=== PATIENT | female | born 1945 | race Caucasian/White ===

== ENCOUNTER 2025-01-04 13:00 | Emergency (ER) | payer OTHER, SELFPAY ==
[2025-01-04 13:02] VITALS: BP 152/108; PULSE 120; RESP 18; TEMP 36.5; O2SAT 96; BMI 26.2
--- NOTE | 2025-01-04 13:32 | EX.ED.DYSGE1 ---
HPI History of Present Illness Chief Complaint: Palpitations Narrative Narrative: 79-year-old female, past medical history of depression and anxiety on antidepressant, presents with atrial fibrillation and fatigue. She relates history that she is felt tired and fatigued over the last month. She denies any chest pain or shortness of breath, no leg swelling, no fevers or chills, no cough, no other symptoms. She was post to have cataract surgery at the [facility] by Dr. Orozco today, but she states that her heart was doing different things. She was told that she was in atrial fibrillation and was sent to the emergency department. She denies any exacerbating or alleviating factors. Once again she states she is not having chest pain and she does not feel heart palpitations but she just been fatigued. PFSH PFSH Home Medications ?Medication ?Instructions ?Recorded ?Last Taken ?Type apixaban 5 mg tablet (Eliquis) 5 mg PO BID #60 tabs 01/04/25 Unknown Rx metoprolol tartrate 50 mg tablet 50 mg PO BID #60 tabs 01/04/25 Unknown Rx paroxetine HCl 20 mg tablet 20 mg PO DAILY 01/04/25 01/03/25 History Allergy/AdvReac Type Severity Reaction Status Date / Time Penicillins Allergy Swelling Verified 01/04/25 13:01 Social History Smoking Status: Never smoker ROS ROS ED ROS Narrative Review of systems positive for malaise and fatigue x 1 month. No chest pain, no shortness of breath, no leg swelling. No nausea or vomiting, no fevers or chills. No exacerbating or alleviating factors. EXAM Physical Exam Narrative Exam Narrative: Afebrile. Vital signs noted. Nontoxic-appearing. Cardiovascular examination reveals an irregularly irregular rhythm, with a normal rate. Lungs clear to auscultation bilaterally. Abdomen soft and nontender without guarding or rebound, positive bowel sounds. Neurological examination nonfocal, nonlateralizing, awake, alert, interactive. No appreciable pedal edema bilaterally. Const Vital Signs: 01/04/25 13:02 01/04/25 14:00 Temperature 97.7 F L Temperature Source Temporal Pulse Rate 120 H 104 H Respiratory Rate 18 14 Blood Pressure 152/108 H 124/78 H Blood Pressure Mean 122 93 Pulse Ox 96 98 Oxygen Delivery Method Room Air MDM MDM MDM Narrative Medical decision making narrative: Concern is for new onset atrial fibrillation. Although she was documented under 20 bpm, on examination she is in the 90s. EKG was obtained and interpreted by myself independently as atrial fibrillation that is rate controlled at [address] changes. No STEMI. I reviewed her laboratory work and she has normal white count of 5.6, hemoglobin 13.7, hematocrit 42.2, platelet count 251. Electrolyte panel shows normal sodium of 140 with potassium 4.1, glucose elevated 227 but anion gap normal at 12. Magnesium normal at 2.1. LFTs are grossly unremarkable. TSH low at 0.096. Chest x-ray interpreted by myself independently as no acute process, no pneumonia, no pneumothorax. I reviewed the radiology report which confirms my independent interpretation. At this point in time, she is rate controlled currently with heart rate at 104 bpm. I discussed patient with Dr. Fercho Pat with cardiology. In discussion with the patient, through shared decision making, they prefer outpatient follow-up as opposed to observation or admission. Patient was given her first dose of metoprolol tartrate 50 mg here as well as Eliquis 5 mg. She is to take the metoprolol and Eliquis twice daily. She was told of the risk of increased bleeding and spontaneous hemorrhage with the use of Eliquis, and risk-benefit ratio was discussed as well. At this point in time, I do feel she can be discharged to follow-up with cardiology. She is to return with consistently elevated heart rate above 120 bpm, new or worsening symptoms including chest pain or shortness of breath. Disposition is discharged home in stable condition. History & Record Review Discussion w/independent historian: Patient and Family Additional record(s) reviewed:: Prior ED visit Lab Data Attestation: I reviewed the patient's lab results. Labs: Laboratory Results - last 24 hr 01/04/25 13:12 WBC 5.6 RBC 4.68 Hgb 13.7 Hct 42.2 MCV 90.2 MCH 29.3 MCHC 32.5 RDW Std Deviation 41.3 RDW Coeff of Albert 12.7 Plt Count 251 MPV 9.8 Sodium 140 Potassium 4.1 Chloride 102 Carbon Dioxide 25.9 Anion Gap 12 BUN 16 Creatinine 0.79 Estim Creat Clear Calc 59.65 Est GFR (MDRD) Non-Af 76 BUN/Creatinine Ratio 20.6 H Glucose 227 H Calcium 10.0 Magnesium 2.1 Total Bilirubin 0.49 AST 22 ALT 20 Alkaline Phosphatase 99 Total Protein 7.2 Albumin 4.4 Globulin 2.8 Albumin/Globulin Ratio 1.6 TSH 0.096 L Radiography Chest X-Ray - ED: 1 View, Read by ED Physician, Read by Radiologist and No Acute Disease Diagnostic Testing: Clinical Impression(s) from Imaging Studies Chest X-Ray 01/04/25 13:55 IMPRESSION: No Acute Findings. Reading Location: [place] [address] Discharge Plan Triage Chief Complaint: Palpitations ED Provider: Kenji Castro Dx/Rx/DC Orders Clinical Impression: New onset atrial fibrillation, Fatigue Instructions: ED AFIB Prescriptions: New metoprolol tartrate 50 mg tablet 50 mg PO BID Qty: 60 0RF Eliquis 5 mg tablet 5 mg PO BID Qty: 60 0RF No Action paroxetine HCl 20 mg tablet 20 mg PO DAILY Primary Care Provider: Lyle Schmid Referrals: Fercho Pat MD [Med Staff - Active Staff] - 3-5 Days Lyle Schmid MD [Primary Care Provider] - Activity Restrictions/Additional Instructions: Follow-up with [facility] or the diesel stationary engineer of your choice. Call the office for an appointment. Take medication as directed. Return to the emergency department with elevated heart rate above 120 bpm consistently, new or worsening symptoms, including chest pain or shortness of breath. With the use of an anticoagulant, you are at risk for increased bleeding or even spontaneous hemorrhage. Print Language: Citizen Of [place] Disposition Disposition: Home, Self Care
--- NOTE | 2025-01-04 13:50 | EKG12_ITS ---
Test Reason : PALP Blood Pressure : */* mmHG Vent. Rate : 97 BPM Atrial Rate : * BPM P-R Int : * ms QRS Dur : 88 ms QT Int : 352 ms P-R-T Axes : * -8 43 degrees QTcB Int : 447 ms Atrial fibrillation Nonspecific ST abnormality Abnormal ECG Confirmed by AMIRA LEWIS, TUAN ([id number]), health editor ROWAN EAGLE ([id number]) on 01/05/2025 8:25:20 AM Referred By: CHARLIE Confirmed By: TUAN COLLIER MD
--- NOTE | 2025-01-04 13:55 | RAD_ITS ---
PROCEDURE: CHEST 1 VIEW (PORTABLE) 01/04/2025 REASON FOR EXAM: FATIGUE TECHNIQUE: Frontal view of the chest. COMPARISON: None FINDINGS: Hardware: EKG electrodes are seen. Heart: The heart size is normal. Lungs: The lungs are clear. Bones: Degenerative changes are identified within the thoracic spine. Other: RAD/Chest 1 View (Portable) IMPRESSION: No Acute Findings. Reading Location: [place] [id number]
[2025-01-04 14:00] VITALS: BP 124/78; PULSE 104; RESP 14; O2SAT 98
[2025-01-04 14:22] LABS: Hematocrit 42.2 % (37-47); Hemoglobin 13.7 g/dL (12.0-15.0); Mean Corp Hgb Conc 32.5 g/dL (32-36); Mean Corpuscular Hgb 29.3 pg (27.0-32.0); Mean Corpuscular Volume 90.2 fL (81-99); Mean Platelet Vol. 9.8 fl (6.2-12.0); Platelet Count 251 K/mm3 (150-450); RBC Distribution Width CV 12.7 % (11.6-14.6); RBC Distribution Width SD 41.3 fl (35.1-43.9); Red Blood Count 4.68 M/mm3 (4.2-5.4); White Blood Count 5.6 K/mm3 (4.4-11.0)
[2025-01-04 15:10] LABS: ALB/GLOB Ratio 1.6 RATIO (0.9-2.4); AST(SGOT) 22 U/L (<=31); Alanine Aminotransfer ALT/SGPT 20 U/L (<=34); Albumin, Serum 4.4 g/dL (3.4-4.8); Alkaline Phosphatase 99 U/L (35-104); BUN 16 mg/dL (4-19); BUN/Creat Ratio 20.6 RATIO (10-20); Creatinine, Serum 0.79 mg/dL (0.70-1.20); EST Glomerular Filtration Rate 76 (>60); Estimated Creatinine Clearance 59.65 ml/min (50-250); Globulin 2.8 g/dL (2.2-4.2); Glucose 227 mg/dL (70-99); Magnesium 2.1 mg/dL (1.5-2.2); Protein, Total 7.2 g/dL (5.9-8.4); Total Bilirubin 0.49 mg/dL (0.00-1.30)
[2025-01-04 15:11] LABS: Anion Gap 12 (5-15); Carbon Dioxide 25.9 mmol/L (21.0-32.0); Chloride 102 mmol/L (98-108); Potassium 4.1 mmol/L (3.3-5.1); Sodium Level 140 mmol/L (133-145); Thyroid Stim Hormone (TSH) 0.096 uIU/mL (0.300-4.200)
[2025-01-04 15:27] VITALS: BP 127/82; PULSE 102; RESP 17; O2SAT 98
[2025-01-04 15:28] VITALS: BP 127/82; PULSE 85; RESP 17; TEMP 36.7; O2SAT 98
[2025-01-04] MEDS: Metoprolol Tartrate 50 MG Tablet PO (15:33)
[2025-01-04] MEDS: APIXABAN 5 MG TABLET PO (15:33)
== END 2025-01-04 15:42 | disposition home or self-care (01) ==
PROVIDERS: Emergency Provider Emergency Medicine; PCP Family Medicine; Visit Provider Emergency Medicine
DX: R00.2 Palpitations (principal); I48.91 Unspecified atrial fibrillation; R53.83 Other fatigue; F41.9 Anxiety disorder, unspecified; Z79.899 Other long term (current) drug therapy; Z79.01 Long term (current) use of anticoagulants
CPT/HCPCS: 71045; 80053; 83735; 84443; 85027; 93005; 99284

== ENCOUNTER → 2025-02-18 | Outpatient (CLI) | payer SELFPAY, OTHER ==
--- NOTE | 2025-02-18 07:02 | ECHOD_ITS ---
Reason For Study Reason For Study: AFIB Procedure This was a 2D Doppler, Color Flow transthoracic echocardiogram. Exam performed in department. Left Ventricle Normal LV size. The left ventricular ejection fraction is 45 %. There is mild global hypokinesis of the left ventricle. Right Ventricle Normal RV size. Normal systolic function. Atria Normal left atrium. Normal right atrium. Mitral Valve Normal mitral valve. Mild (1+) eccentric mitral valve insufficiency. Tricuspid Valve Normal tricuspid valve. Mild (1+) tricuspid valve insufficiency. Pulmonary artery systolic pressure is 26 mmHg. Aortic Valve Trisinus/trileaflet aortic valve. Pulmonic Valve Normal pulmonic valve. Great Vessels Normal aortic root. The pulmonary artery is normal size. Inferior vena cava collapse with respiration. Pericardium/Pleural No pericardial effusion. MMode/2D Measurements & Calculations LVIDd: 4.7 cm IVSd: 1.1 cm LVOT diam: 2.0 cm LVIDs: 3.7 cm LVPWd: 1.2 cm LVOT area: 3.1 cm2 RVDd: 3.6 cm FS: 21.9 % LAV(MOD-bp): 83.9 ml LVAd ap4: 22.6 cm2 SV(MOD-sp4): 24.2 ml LAV(MOD-bp) Indexed: 44.8 ml/m2 LVLd ap4: 7.3 cm SI(MOD-sp4): 12.9 ml/m2 LAV(MOD-sp2): 123.3 ml EDV(MOD-sp4): 58.8 ml LAV(MOD-sp4): 58.3 ml EDV(sp4-el): 59.7 ml LVAs ap4: 14.8 cm2 LVLs ap4: 5.5 cm ESV(MOD-sp4): 34.6 ml ESV(sp4-el): 34.0 ml EF(MOD-sp4): 41.2 % EF(sp4-el): 43.0 % SV(sp4-el): 25.7 ml LA A4 area: 21.0 cm2 LA dimension(2D): 3.7 cm RA A4 area: 18.0 cm2 Doppler Measurements & Calculations MV E max dana: 82.2 cm/sec Ao V2 max: 131.8 cm/sec AI max dana: 433.1 cm/sec Ao max P.0 mmHg AI max P.0 mmHg Ao V2 mean: 89.1 cm/sec Ao mean P.7 mmHg AI dec slope: 141.2 cm/sec2 Ao V2 VTI: 28.8 cm AI P1/2t: 898.4 msec AV (velocity ratio): 0.67 MALCOLM(I,D): 2.1 cm2 MALCOLM(V,D): 2.1 cm2 LV V1 max: 91.1 cm/sec SV(LVOT): 59.9 ml PA V2 max: 74.2 cm/sec LV V1 max P.3 mmHg PA V2 mean: 62.9 cm/sec LV V1 mean P.6 mmHg LV V1 mean: 58.8 cm/sec LV V1 VTI: 19.3 cm TR max dana: 239.8 cm/sec TR max P.0 mmHg ECHO/Echo Complete Interpretation Summary Normal LV size. The left ventricular ejection fraction is 45 %. There is mild global hypokinesis of the left ventricle. Mild (1+) tricuspid valve insufficiency. Ordering Physician: Philip Dietz Referring Physician: Philip Dietz Performed By: Antonieta Emery RCS
--- OUTSIDE RECORDS SUMMARY | 2025-02-18 07:14 | XMS RPT_ITS | CCD ---
Author Organization [facility] Care Team Providers Care Saddle Mechanic Name Role Phone Sonam Hernandez MD Primary Care Provider Sonam Hernandez MD Primary Care Provider Katie DIAMOND ASSORTER.RN CHEMICAL DEPENDENCYLa Unavailable Munir DIAMOND ASSORTER.RN CHEMICAL DEPENDENCYDaniel Unavailable Kenji Castro MD Emergency Provider Dr. Sonam Hernandez MD Primary Care Provider [phone] Kenji Castro MD Attending Provider Dr. Sonam Hernandez MD Referring Provider Dr. Philip Dietz MD Attending Provider Sonam Hernandez Referring Unavailable Sonam Hernandez Primary Care Unavailable Philip Dietz Attending Unavailable Snoam Hernandez Primary Care Unavailable Kenji Castro Attending Unavailable SONAM HERNANDEZ Attending Unavailable SONAM HERNANDEZ Primary Care Unavailable SHINE TELLEZ Attending Unavailable SONAM HERNANDEZ Primary Care Unavailable SHINE TELLEZ Referring Unavailable SONAM HERNANDEZ Primary Care Unavailable SONAM HERNANDEZ Primary Care Unavailable AUBREY JAIMES Attending Unavailable Allergies Allergy Classification Reported Allergen(s) Allergy Type Date of Onset Reaction(s) Facility (3 sources) Penicillins; Translations: [PENICILLINS] Propensity to adverse reactions [address] [facility] Work Phone: (6 sources) Penicillins Propensity to adverse reactions [address] [facility] Work Phone: (5 sources) Penicillins Propensity to adverse reactions [address] [facility] Work Phone: (2 sources) Penicillins Allergy to substance 5 Swelling [facility] (1 source) Penicillins Drug allergy (disorder) 5 [facility] Repository Medications Current Medications Medication Drug Class(es) Dates Sig (Normalized) Sig (Original) apixaban 5 mg oral tablet (4 sources) Factor Xa Inhibitor Start: 01-04-2025 End: 01-26-2025 take 1 tablet by mouth twice daily Apixaban (Eliquis) 5 mg tablet Active 5 mg PO TWICE A DAY 60 11 January 26, 2025 10:06am ascorbic acid 1000 mg oral capsule (1 source) Vitamin C Start: 01-26-2025 take 1 capsule by mouth once daily Ascorbic Acid (Vitamin C) 1,000 mg capsule Active 1000 mg PO daily January 26, 2025 12:00am Calcium Carbonate / magnesium carbonate (13 sources) Start: 11-16-2010 Calcium and Magnesium Carbonates ORAL per tablet Take 1 tablet by mouth. 3 tablets 0 11/16/2010 Active Comment on above: Take 1 tablet by margo . 3 tablets CelluLife (1 source) Start: 01-26-2025 CelluLife Active PO DAILY January 26, 2025 12:00am cholecalciferol 0.025 mg oral capsule (14 sources) Vitamin D Start: 01-26-2025 take 1 capsule by mouth once daily Cholecalciferol (Vitamin D3) 25 mcg (1,000 unit) capsule Active 25 ug PO daily January 26, 2025 12:00am Start: 06-01-2015 take 1 capsule by mo [facility] once daily Cholecalciferol, Vitamin D3, 1,000 unit cap Take 1 capsule by mouth once daily. 30 capsule 11 06/01/2015 Active Comment on above: Take 1 capsule by mo ut once daily. Fish Oil-Conowingo-3 Fatty Acids 300-1,000 mg cpDR (11 sources) Start: 11-17-19 11 Fish Oil-Conowingo-3 Fatty Acids 300-1,000 mg cpDR Take by mouth. 6 daily 0 11/16/2010 Active Comment on above: Take by mouth. 6 joão ly Maxi Vision (1 source) Start: 01-27-20 25 Maxi Vision Active PO DAILY January 26, 2025 12:00am metoprolol tartrate 50 mg oral tablet (3 sources) beta-Adrenergic Beto Start: 01-05-20 End: 01-27-20 take 1 tablet by mouth twice daily Metoprolol Tartrate 50 mg tablet Active 50 mg PO TWICE A DAY 60 11 January 26, 2025 10:07am nitrofurantoin, macrocrystals 25 mg / nitrofurantoin, monohydrate 75 mg oral capsule (4 sources) Nitrofuran Antibacterial Start: 02-15-20 End: 02-20-20 take 1 capsule by mouth twice daily nitrofurantoin monohydrate and macrocrystal (MACROBID) 100 mg capsule Take 1 capsule by mouth two times a day for 5 days. 10 capsule 02/14/2025 02/19/2025 Active Start: 05-09-2023 End: 05-14-2023 take 1 capsule by mouth twice daily nitrofurantoin monohydrate and macrocrystal (MACROBID) 100 mg capsule Take 1 capsule by mouth two times a day for 5 days. 10 capsule 0 05/09/2023 05/14/2023 Active Comment on above: Take 1 capsule by [facility] two times a day for 5 days. omega-3 acid ethyl esters (skilled nursing) 1000 mg oral capsule (1 source) Start: 5 Conowingo-3 Acid Ethyl Esters 1 gram capsule Active 1 NMA PO daily January 26, 2025 12:00am PARoxetine hydrochloride 20 mg oral tablet (20 sources) Serotonin Reuptake Inhibitor Start: End: 6 take 1 tablet by mouth once daily PARoxetine (PAXIL) 20 mg tablet Indications: Anxiety and depression Take 1 tablet by mouth once daily. 90 tablet 3 07/23/2024 07/23/2025 Active Comment on above: Take [address] tablet [address] [facility] once daily. Sugar Recovery (1 source) Start: 5 Sugar Recovery Active PO DAILY January 26, 2025 12:00am Turmeric extract (1 source) Start: 5 take 1 capsule by mouth once daily Turmeric 400 mg capsule Active 400 mg PO DAILY January 26, 2025 12:00am vitamin e 180 mg oral capsule (14 sources) Start: 5 take 1 capsule by mouth once daily Vitamin E (Dl, Acetate) 180 mg (400 unit) capsule Active 180 mg PO daily January 26, 2025 12:00am Start: 11-16-2010 take 1 capsule by mo uth twice daily alpha tocopheryl acetate 400 unit ORAL capsule Take 1 capsule by mouth twice daily. 0 11/16/2010 Active Start: 11-16-2010 take 1 capsule by mo uth twice daily alpha tocopheryl acetate 400 unit ORAL capsule Take 1 capsule by mouth twice daily. 0 11/16/2010 Active Comment on above: Take 1 capsule by mo uth twice daily. Completed/Discontinued Medications Medication Drug Class(es) Dates Sig (Normalized) Sig (Original) Fish Oil-Conowingo-3 Fatty Acids (FISH OIL OMEGA 3-6-9) 300-1,000 mg ORAL CpDR (2 sources) Start: 11-16-2010 Fish Oil-Conowingo-3 Fatty Acids (FISH OIL OMEGA 3-6-9) 300-1,000 mg ORAL CpDR Take by mouth. 6 daily 0 11/16/2010 Active Comment on above: Take by mouth. 6 joão ly rosuvastatin calcium 5 mg oral tablet (8 sources) HMG-CoA Reductase Inhibitor Start: 04-02-2018 End: 07-23-2024 rosuvastatin (CRESTOR) 5 mg tablet Indications: Hyperlipidemia with target LDL less than 100 Take one tablet at bedtime three times/week. 12 tablet 5 04/02/2018 07/23/2024 Discontinued (Course of therapy completed) Comment on above: Take one tablet at b edtime three times/week. Problems Active Problems Problem Classification Problem Date Documented Da te Episodic/Chronic Anxiety disorders (19 sources) Mixed anxiety and depressive disorder; Translations: [Anxiety disorder, unspecified] Onset: 05-25-2015 05-25-2015 Chronic Cardiac dysrhythmias (5 sources) Atrial fibrillation; Translations: [Unspecified atrial fibrillation] Onset: 01-26-2025 01-04-2025 Chronic Cardiac dysrhythmias (1 source) Palpitations; Translations: [Palpitations] Onset: 01-11-2025 Episodic Diabetes mellitus without complication (17 sources) Type 2 diabetes mellitus without complication; Translations: [Type 2 diabetes mellitus without complications] Onset: 05-25-2015 05-25-2015 Chronic Disorders of lipid metabolism (16 sources) Hyperlipidemia; Translations: [Hyperlipidemia, unspecified] Onset: 08-17-2012 05-25-2015 Chronic Genitourinary symptoms and ill-defined conditions (3 sources) Scalding pain on urination ; Translations: [Dysuria] Onset: 02-14-2025 05-09-2023 Episodic Malaise and fatigue (2 sources) Fatigue; Translations: [Other fatigue] 01-04-2025 Episodic Mood disorders (1 source) Depressive disorder; Translations: [Depression] 01-18-2025 Chronic Other non-traumatic joint disorders (6 sources) Pain of right wrist; Translations: [Pain in right wrist] 12-28-2024 Episodic Other non-traumatic joint disorders (1 source) Pain in right wrist; Translations: [Right wrist pain] Onset: 12-28-2024 Episodic Past or Other Problems Problem Classification Problem Date Documented Da te Episodic/Chronic Diabetes mellitus with complications (7 sources) Type 2 diabetes mellitus; Translations: [Type II or unspecified type diabetes mellitus without mention of complication, uncontrolled] Onset: 06-16-2006 Resolved: 05-25-2015 05-25-2015 Chronic Nutritional deficiencies (8 sources) Vitamin D deficiency; Translations: [Vitamin D deficiency, unspecified] Onset: 11-16-2010 Resolved: 12-04-2016 12-04-2016 Chronic Thyroid disorders (8 sources) Hypothyroidism; Translations: [Hypothyroidism, unspecified] Onset: 09-01-2006 Resolved: 09-21-2020 09-21-2020 Chronic Results Test Name Value Interpretation Reference Range Facility Bacteria Ur Culton 5 Bacteria identified Cx Nom (U) ORGANISM ID: 1 10,000 -<50,000 CFU/ml Normal urogenital nissa Normal [facility] Comment on above: Performed By: #### 6 30-4 #### [facility] CLIA [id number] [address] [place] [address] [place] CNOVon 02-14-2025 CNOV Office Visit (WOUCA) ---- DORYS GOMES ([id number]) 1945 F Date Time Provider Department 02/14/25 1:45 PM FIONAAUBREY SHIV During your visit today, we recorded the following information about you: Temperature Pulse Respiration Blood pressure 96.2 degrees 95/minute 20/minute 110/80 Weight 76.1 kg Fiona Aub[facility]APRN. [facility] 02/14/2025 12:49 PM Signed [facility] Olvera Dorys Gomes is a 79 year old female. Patient presents with: Urinary Problem: Frequency x 4 days HPI Nontoxic-appearing female presents urgent care chief plaint possible UTI. Duration of symptoms 4 days. Associated symptoms dysuria frequency urgency. Presents today for evaluation. States history of UTIs this is similar. OTC medications none. No flank pain fever vomiting or abdominal pain. No vaginal discharge. Past medical history prescription medications allergies reviewed. Review of Systems Constitutional: Negative for chills, fatigue and fever. Gastrointestinal: Negative for abdominal distention, abdominal pain, nausea, rectal pain and vomiting. Genitourinary: Positive for dysuria, frequency and urgency. Negative for difficulty urinating, dyspareunia, flank pain, genital sores, hematuria, vaginal bleeding, vaginal discharge and vaginal pain. Objective BP 110/80 Pulse 95 Temp (!) 35.7 ?C (96.2 ?F) Resp 20 Wt 76.1 kg (167 lb 12.3 oz) SpO2 99% BMI 27.08 kg/m? Physical Exam Constitutional: Appearance: Normal appearance. HENT: Mouth/Throat: Mouth: Mucous membranes are moist. Cardiovascular: Rate and Rhythm: Normal rate. Pulmonary: Effort: Pulmonary effort is normal. Breath sounds: Normal breath sounds. Abdominal: Tenderness: There is no abdominal tenderness. There is no right CVA tenderness, left CVA tenderness, guarding or rebound. Neurological: Mental Status: She is alert. {ASSESSMENT/PLAN: 1. Urinary frequency - ICD9: 788.41, ICD10: R35.0 acute - UA DIP, URINE (POC) - BACTERIAL CULTURE, URINE Urine positive for glucose blood leukocytes. Treat for acute cystitis. Placed on Macrobid. Patient states she does had routine lab work not too long ago and kidney functions was within normal limits. I did encourage patient to check glucose at home due to glucose in urine. Red flags for prompt ER evaluation discussed. Patient was educated on supportive therapies. Patient will follow up with primary care provider as needed. Patient was instructed to immediately proceed to emergency room for any new, worsening, or symptoms lasting longer than anticipated. The patient's clinical presentation is otherwise unremarkable at this time. Based on exam and clinical finding, the patient is stable for discharge. Plan of care was discussed with patient. Patient verbalizes understanding and agrees to plan of care. This note was generated using Clerk software. It may contain errors in wording, punctuation, or spelling. Aubrey Jaimes APRN.[facility] History and Record Review Clinical information obtained from an independent historian. History obtained from or confirmed by: parent. External record(s) reviewed: prior outpatient record. Disposition The patient was discharged. OTC Medications were advised: Procedures Allergies As of Date: 02/14/2025 Noted Allergy Reaction PENICILLINS 07/29/2005 Date Reviewed: 02/14/2025 Reviewed by: Aubrey Jaimes APRN.[facility] - Fully Assessed Reason for Visit: Urinary Problem [252] Cmt: Frequency x 4 days Primary Visit Diagnosis:Urinary frequency [R35.0] Order(s):UA DIP, URINE (POC) [[id number]] Order #: [id number]. #:[id number] BACTERIAL CULTURE, URINE [SQURCUL] Order #: [id number]. #:[id number] nitrofurantoin monohydrate and macrocrystal (MACROBID) 100 mg capsuleTake 1 capsule by mouth two times a day for 5 days.Disp: 10 capsuleRfl: 0 Prescriptions as of 02/14/2025 - nitrofurantoin monohydrate and macrocrystal (MACROBID) 100 mg capsule Take 1 capsule by mouth two times a day for 5 days. - PARoxetine (PAXIL) 20 mg tablet Take 1 tablet by mouth once daily. - Cholecalciferol, Vitamin D3, 1,000 unit cap Take 1 capsule by mouth once daily. - Fish Oil-Conowingo-3 Fatty Acids 300-1,000 mg cpDR Take by mouth. 6 daily - Calcium and Magnesium Carbonates ORAL per tablet Take 1 tablet by mouth. 3 tablets - alpha tocopheryl acetate 400 unit ORAL capsule Take 1 capsule by mouth twice daily. Problem List As Of Date 02/14/2025 Noted Resolved DIABETES MELLITUS TYPE II UNCONTR UNCOMPL [IMO0*06/16/2006 05/25/2015 Hypothyroidism [E03.9] 09/01/2006 09/21/2020 Vitamin D deficiency [E55.9] 11/16/2010 12/04/2016 Hyperlipidemia with target LDL less than 100 [E*08/17/2012 Diabetes mellitus type 2, controlled, without c*05/25/2015 Anxiety and depression [F41.9, F32.A] 05/25/2015 Prescriptions ordered this encounte (more content not included)... Normal [facility] UA DIP, URINE (POC)on 2024 BILIRUBIN UA (POCT) Negative Negative [place] [facility] CLARITY UA (POCT) Cloudy [facility] COLOR UA (POCT) Dark yellow [facility] GLUCOSE UA (POCT) 250 mg/dL Abnormal Negative [facility] Hemoglobin Ql (U) Moderate Abnormal Negative [facility] Interpretation and review of laboratory results Abnormal [facility] KETONE UA (POCT) Trace Negative mg/dL [facility] LEUKOCYTES UA (POCT) Small Abnormal Negative [facility] NITRITE UA (POCT) Negative Negative [facility] PH UA (POCT) 6 4.5 - 8.[address] [facility] Protein Ql (U) 30 mg/dL Abnormal Negative [facility] SPECIFIC GRAVITY UA (POCT) 1.02 1.005 - 1.[address] [facility] UROBILINOGEN UA (POCT) 0.2 Fariba l E.U./dL [facility] Location:[address], [place], [place], [id number] [place] [address] POINT OF CARE [facility] Cardiology Visit Reporton Cardiology Visit Report [facility] [address] [place] [address] OFFICE VISIT Date of Service: 01/26/25 MR#: [id number] Acct: [id number] Name: DORYS GOMES Rep #: [id number] : 1945 Provider: Dr. Philip martin MD Age/Sex: 79/F Location: [facility] [place] Status: Signed HPI HPI History of Present Illness Details: Patient is a very pleasant 79-year-old [facility] white female who comes in today for new patient visit for atrial fibrillation. Patient presented to have cataract surgery on January 04 and was found to be in atrial fibrillation. She was sent to the emergency department at [facility] where she was evaluated. The patient's lab work was unremarkable other than her TSH being depressed at 0.096 normal levels being 0.3-4.2. She is on no replacement therapy. The patient carries a history of diabetes she does not know her hemoglobin A1c. She also has a history of hyperlipidemia and she is not on statin therapy. The patient's ECG in the emergency department on January 04 showed atrial fibrillation with a ventricular response of 97 bpm and some nonspecific ST changes. Patient comes in today with a repeat ECG showing atrial fibrillation with a controlled ventricular rate of [address] changes and poor R wave progression. This is probably related to lead placement. There was no poor R wave progression on her previous ECG. The patient has been treated with Eliquis 5 mg twice daily and metoprolol 50 mg twice daily since she was in the emergency department. The patient denies any chest discomfort she denies any syncope or near syncope she denies any change in her exercise tolerance she can walk 2 flights of stairs without significant shortness of breath and no significant restrictions. She has not noticed any change in her exercise tolerance she had no idea that she was in atrial fibrillation at the time of her cataract surgery. We really do not know when this started there was some notation in the ER documentation that it may have started in November. But the patient reports that she is intermittently felt palpitations for several years. There is a family history of heart disease in her dad. She is diabetic and she is not hypertensive she does have a history of hyperlipidemia by her medical record and type 2 diabetes by her medical record. She has never smoked. The patient's had no further testing since she was seen in the ED. Intake Vital Signs 01/04/25 13:02 01/26/25 09:18 Height 5 ft 7 in 5 ft 7 in Weight: 167 lb BMI 26.2 BP 126/84 H Blood Pressure Location Lt brachial Position Sitting Respiration 18 Pulse 78 Pulse Source Monitor Pulse Oximetry (%) 97 Oxygen Delivery Method room air Intake Visit Reasons: S/P [facility] 01/05 ([facility] ER) Inspector Plating Required: No Accompanied by: Is patient in pain?: No Allergies Penicillins Allergy (Verified 01/26/25 09:18) Swelling Medications ???Medication ???Instructions ???Recorded ???Confirmed ???Type paroxetine HCl 20 mg tablet 20 mg PO DAILY 01/04/25 01/26/25 H istory CelluLife PO DAILY 01/26/25 01/26/25 History Maxi Vision PO DAILY 01/26/25 01/26/25 History Sugar Recovery PO DAILY 01/26/25 01/26/25 History apixaban 5 mg tablet (Eliquis) 5 mg PO BID #60 tabs 01/26/2504/14 Rx ascorbic acid (vitamin C) 1,000 mg 1,000 mg PO QDAY 01/26/25 History capsule cholecalciferol (vitamin D3) 25 25 mcg PO QDAY 01/26/25 01/26/25 H istory mcg (1,000 unit) capsule metoprolol tartrate 50 mg tablet 50 mg PO BID #60 tabs 01/26/2504/14 Rx omega-3 acid ethyl esters 1 gram 1 cap PO QDAY 01/26/25 01/26/25 Hi story capsule turmeric 400 mg capsule 400 mg PO DAILY 01/26/25 01/26/25 History vitamin E (dl, acetate) 180 mg 180 mg PO QDAY 01/26/25 01/26/25 H istory (400 unit) capsule Have you fallen in the past year?: No [facility] Medical History Atrial fibrillation Hypothyroidism Vitamin D deficiency Hyperlipidemia Type 2 diabetes mellitus JESUS (generalized anxiety disorder) Depression Surgical History History of ankle surgery Family History Mother Cancer Father Diabetes Heart disease Social History Smoking Status: Never smoker alcohol intake: never substance use type: does not use caffeine: Yes ROS Const Const: Negative for fatigue or weakness ENT ENT: Negative for dizziness or balance problems Cardio Chest Pain: No Palpitations: Yes Edema: None Muscle aches with walking: None Resp Respiratory: Negative for SOB with activity, SOB at rest (more content not included)... Normal [facility] 12 Lead EKGon 01-04-2025 12 Lead EKG [facility] [address] [place] [address] 12 Lead EKG 01/04/25 1313 MR#: [id number] Acct: [id number] Name: DORYS GOMES Rep #: [id number] : 1945 79 From: Fercho Pat MD Attending Dr: Status: DEP ER Ordering Dr: Kenji Casrto MD Date: 01/04/25 Location: ED Sex: F C Admitted: Test Reason : PALP Blood Pressure : */* mmHG Vent. Rate : 97 BPM Atrial Rate : * BPM P-R Int : * ms QRS Dur : 88 ms QT Int : 352 ms P-R-T Axes : * -8 43 degrees QTcB Int : 447 ms Atrial fibrillation Nonspecific ST abnormality Abnormal ECG Confirmed by AMIRA LEWIS, FERCHO ([id number]), commissioning editor ROWAN EAGLE ([id number]) on 01/05/2025 8:25:20 AM Referred By: CHARLIE Confirmed By: FERCHO PAT MD 01/05/25 0825 Date Fercho Pat MD CC: Dr. Kenji Castro MD; Dr. Sonam Hernandez MD Signed Normal [facility] Anion gap in Serum or Plasma Ordered By: Kenji Castro on 01-04-2025 Anion gap [Moles/Vol] 12 mmol/L 12-02 [facility] BUN/creatinine ratioOrdered By: Kenji Castro on 01-04-2025 Urea nitrogen/Creatinine [Mass ratio] 20.6 mg/mg High 05-09 [facility] Bilirubin, totalOrdered By: Kenji Castro on 01-04-2025 Bilirubin [Mass/Vol] 0.49 mg/dL 0.00-1.30 [facility] CBC-Complete Blood Cnt No Di ffon 01-04-2025 Erythrocyte distribution width (RBC) [Ratio] 12.7 % Normal 11.6-14.6 [facility] Comment on above: Performed By: #### L [id number], L500.4050, L100.0500, L501.5200 #### [facility] [address] [place], [address] Hematocrit (Bld) [Volume fraction] 42.2 % Normal 37-47 [facility] Comment on above: Performed By: #### L [id number], L500.4050, L100.0500, L501.5200 #### [facility] [address] [place], [address] Hemoglobin (Bld) [Mass/Vol] 13.7 g/dL Normal 12.0-15.0 [facility] Comment on above: Performed By: #### L [id number], L500.4050, L100.0500, L501.5200 #### [facility] [address] [place], [address] MCH (RBC) [Entitic mass] 29.3 pg Normal 27.0-32.0 [facility] Comment on above: Performed By: #### L [id number], L500.4050, L100.0500, L501.5200 #### [facility] [address] [place], [address] MCHC (RBC) [Mass/Vol] 32.5 g/dL Normal 32-36 [facility] Comment on above: Performed By: #### L [id number], [id number], L100.0500, L501.5200 #### [facility] [address] [place], [address] MCV (RBC) [Entitic vol] 90.2 fL Normal 81-99 [facility] Comment on above: Performed By: #### L [id number], L500.4050, L100.0500, L501.5200 #### [facility] [address] [place], [address] Platelet mean volume (Bld) [Entitic vol] 9.8 fL Normal 6.2-12.0 [facility] Comment on above: Performed By: #### L [id number], [id number], L100.0500, L501.5200 #### [facility] [address] [place], [address] Platelets (Bld) [#/Vol] 251 10*3/uL Normal 150-450 [facility] Comment on above: Performed By: #### L [id number], L500.4050, L100.0500, L501.5200 #### [facility] [address] [place], [address] RBC (Bld) [#/Vol] 4.68 10*6/uL Normal 4.2-5.4 [facility] Comment on above: Performed By: #### L [id number], L500.4050, L100.0500, L501.5200 #### [facility] [address] [place], [address] RDW SD 41.3 fl Normal 35.1-43.9 [facility] Comment on above: Performed By: #### L [id number], L500.4050, L100.0500, L501.5200 #### [facility] [address] [place], [address] WBC (Bld) [#/Vol] 5.6 10*3/uL Normal 4.4-11.0 [facility] Comment on above: Performed By: #### L [id number], L500.4050, L100.0500, L501.5200 #### [facility] [address] [place], [address] CNPNon 01-04-2025 CNPN Telephone (FAMPWS) ---- DORYS GOMES ([id number]) 1945 F Date Time Provider Department 01/04/25 [facility]DE[facility] [facility] During your visit today, we recorded the following information about you: Kira Gilliam RN 01/04/2025 1:01 PM Signed Tia calling from [facility] and states pt was scheduled to have cataract procedure today and was noted to have new A-Fib with RVR. Tia states pt agreeable to be evaluated at [facility] today. KATHIE Michel Mark D, MD 01/04/2025 2:27 PM Signed Noted Sonam Hernandez MD Allergies As of Date: 01/04/2025 Noted Allergy Reaction PENICILLINS 07/29/2005 Date Reviewed: 12/28/2024 Reviewed by: Samina Ruvalcaba LPN - Fully Assessed Reason for Visit: Patient Update [1234] Prescriptions as of 01/04/2025 - PARoxetine (PAXIL) 20 mg tablet Take 1 tablet by mouth once daily. - Cholecalciferol, Vitamin D3, 1,000 unit cap Take 1 capsule by mouth once daily. - Fish Oil-Conowingo-3 Fatty Acids 300-1,000 mg cpDR Take by mouth. 6 daily - Calcium and Magnesium Carbonates ORAL per tablet Take 1 tablet by mouth. 3 tablets - alpha tocopheryl acetate 400 unit ORAL capsule Take 1 capsule by mouth twice daily. Problem List As Of Date 01/04/2025 Noted Resolved DIABETES MELLITUS TYPE II UNCONTR UNCOMPL [IMO0*06/16/2006 05/25/2015 Hypothyroidism [E03.9] 09/01/2006 09/21/2020 Vitamin D deficiency [E55.9] 11/16/2010 12/04/2016 Hyperlipidemia with target LDL less than 100 [E*08/17/2012 Diabetes mellitus type 2, controlled, without c*05/25/2015 Anxiety and depression [F41.9, F32.A] 05/25/2015 Encounter Status:Closed by SONAM HERNANDEZ on 01/04/25 Normal [facility] Carbon dioxide, total [Moles /volume] in Central venous bloodOrdered By: Kenji Castro on 01-04-2025 CO2 [Moles/Vol] 25.9 mmol/L 21.0-32.0 [facility] Chest 1 View (Portable)on Chest 1 View (Portable) [facility] Imaging Services [address] [place] [address] Chest 1 View (Portable) MR#: [id number] Acct: [id number] Name: DORYS GOMES Rep #: [id number] : 1945 F 79 From: Javier conklin MD PCP: Dr. Sonam Hernandez MD Status: REG ER Study: Chest 1 View (Portable) Date of Exam: 01/04/25 Exam# [id number] Ordering Dr: Kenji Castro MD PROCEDURE: CHEST 1 VIEW (PORTABLE) 01/04/2025 REASON FOR EXAM: FATIGUE TECHNIQUE: Frontal view of the chest. COMPARISON: None FINDINGS: Hardware: EKG electrodes are seen. Heart: The heart size is normal. Lungs: The lungs are clear. Bones: Degenerative changes are identified within the thoracic spine. Other: RAD/Chest 1 View (Portable) IMPRESSION: No Acute Findings. Reading Location: [facility]--1 CC: Dr. Kenji Castro MD; Dr. Sonam Hernandez MD Senior Php Web Developer: Signed Normal [facility] Chloride assayOrdered By: David Castro on 01-04-2025 Chloride [Moles/Vol] 102 mmol/L 98-108 [facility] Comprehensive Metabolic Prof ilon 01-04-2025 Chloride [Moles/Vol] 102 mmol/L Normal 98-108 [facility] Comment on above: Performed By: #### L 501.0831, L500.4050, L100.0500, L501.5200 #### [facility] Laboratory [address] [place], [address] CO2 [Moles/Vol] 25.9 mmol/L Normal 21.0-32.0 [facility] Comment on above: Performed By: #### L [id number], L500.4050, L100.0500, L501.5200 #### [facility] [address] [place], [address] GAP 12 Normal 5-15 [facility] Comment on above: Performed By: #### L [id number], L500.4050, L100.0500, L501.5200 #### [facility] Laboratory [address] [place], [address] Potassium [Moles/Vol] 4.1 mmol/L Normal 3.3-5.1 [facility] Comment on above: Performed By: #### L [id number], L500.4050, L100.0500, L501.5200 #### [facility] [address] [place], [address] Sodium [Moles/Vol] 140 mmol/L Normal 133-145 [facility] Comment on above: Performed By: #### L [id number], [id number], L100.0500, L501.5200 #### [facility] [address] [place], [address] Albumin [Mass/Vol] 4.4 g/dL Normal 3.4-4.8 [facility] Comment on above: Performed By: #### L [id number], L500.4050, L100.0500, L501.5200 #### [facility] [address] [place], [address] Albumin/Globulin [Mass ratio] 1.6 {ratio} Normal 0.9-2.4 [facility] Comment on above: Performed By: #### L [id number], L500.4050, L100.0500, L501.5200 #### [facility] [address] [place], [address] ALK PHOS 99 U/L Normal 35-104 [facility] Comment on above: Performed By: #### L [id number], L500.4050, L100.0500, L501.5200 #### [facility] [address] [place], [address] ALT [Catalytic activity/Vol] 20 U/L Normal <=34 [facility] Comment on above: Performed By: #### L [id number], L500.4050, L100.0500, L501.5200 #### [facility] [address] [place], [address] AST [Catalytic activity/Vol] 22 U/L Normal <=31 [facility] Comment on above: Performed By: #### L [id number], L500.4050, L100.0500, L501.5200 #### [facility] [address] [place], [address] Bilirubin [Mass/Vol] 0.49 mg/dL Normal 0.00-1.30 [facility] Comment on above: Performed By: #### L [id number], L500.4050, L100.0500, L501.5200 #### [facility] [address] [place], [address] BUN/CRE 20.6 RATIO High 10-20 [facility] Comment on above: Performed By: #### L [id number], L500.4050, L100.0500, L501.5200 #### [facility] [address] [place], [address] Calcium [Mass/Vol] 10.0 mg/dL Normal 7.6-11.0 [facility] Comment on above: Performed By: #### L [id number], L500.4050, L100.0500, L501.5200 #### [facility] [address] [place], [address] Creatinine [Mass/Vol] 0.79 mg/dL Normal 0.70-1.20 [facility] Comment on above: Performed By: #### L [id number], [id number], L100.0500, L501.5200 #### [facility] [address] [place], [address] ECRCL 59.65 ml/min Normal 50-250 [facility] Comment on above: Performed By: #### L [id number], L500.4050, L100.0500, L501.5200 #### [facility] [address] [place], [address] GFR/1.73 sq M.predicted among non-blacks MDRD (S/P/Bld) [Vol rate/Area] 76 mL/min/{1.73_m2} Normal >60 [facility] Comment on above: Result Comment: mL/m in/1.73m2 CKD-EPI Creatinine Equation (2020) Performed By: #### L 501.9520, L500.4050, L100.0500, L501.5200 #### [facility] [address] [place], [address] Globulin (S) [Mass/Vol] 2.8 g/dL Normal 2.2-4.2 [facility] Comment on above: Performed By: #### L 501.9520, L500.4050, L100.0500, L501.5200 #### [facility] [address] [place], [address] Glucose [Mass/Vol] 227 mg/dL High 70-99 [facility] Comment on above: Performed By: #### L 501.9520, L500.4050, L100.0500, L501.5200 #### [facility] [address] [place], [address] T PROT 7.2 g/dL Normal 5.9-8.4 [facility] Comment on above: Performed By: #### L [id number], L500.4050, L100.0500, L501.5200 #### [facility] [address] [place], [address] Urea nitrogen [Mass/Vol] 16 mg/dL Normal 4-19 [facility] Comment on above: Performed By: #### L [id number], L500.4050, L100.0500, L501.5200 #### [facility] [address] [place], [address] Emergency Department Summary on 01-04-2025 Emergency Department Summary [facility] Medical Records Department [address] [facility] [place] [address] Emergency Department Summary 01/04/25 MR#: [id number] Acct: [id number] Name: DORYS GOMES Rep #: [id number] : 1945 79 From: Kenji Castro MD PCP: Dr. Sonam Hernandez MD Status:REG ER Location: ED HPI History of Present Illness Chief Complaint: Palpitations Narrative Narrative: 79-year-old female, past medical history of depression and anxiety on antidepressant, presents with atrial fibrillation and fatigue. She relates history that she is felt tired and fatigued over the last month. She denies any chest pain or shortness of breath, no leg swelling, no fevers or chills, no cough, no other symptoms. She was post to have cataract surgery at the [facility] by Dr. Orozco today, but she states that her heart was doing different things. She was told that she was in atrial fibrillation and was sent to the emergency department. She denies any exacerbating or alleviating factors. Once again she states she is not having chest pain and she does not feel heart palpitations but she just been fatigued. PFS PFSH Home Medications ???Medication ???Instructions ???Recorded ???Last Taken ???Type apixaban 5 mg tablet (Eliquis) 5 mg PO BID #60 tabs 01/04/25 Unkn own Rx metoprolol tartrate 50 mg tablet 50 mg PO BID #60 tabs 01/04/25 Unk nown Rx paroxetine HCl 20 mg tablet 20 mg PO DAILY 01/04/25 01/03/25 H istory Allergy/AdvReac Type Severity Reaction Status Date / Time Penicillins Allergy Swelling Verified 01/04/25 13:01 Social History Smoking Status: Never smoker ROS ROS ED ROS Narrative Review of systems positive for malaise and fatigue x 1 month. No chest pain, no shortness of breath, no leg swelling. No nausea or vomiting, no fevers or chills. No exacerbating or alleviating factors. EXAM Physical Exam Narrative Exam Narrative: Afebrile. Vital signs noted. Nontoxic-appearing. Cardiovascular examination reveals an irregularly irregular rhythm, with a normal rate. Lungs clear to auscultation bilaterally. Abdomen soft and nontender without guarding or rebound, positive bowel sounds. Neurological examination nonfocal, nonlateralizing, awake, alert, interactive. No appreciable pedal edema bilaterally. Const Vital Signs: 01/04/25 13:02 01/04/25 14:00 Temperature 97.7 F L Temperature Source Temporal Pulse Rate 120 H 104 H Respiratory Rate 18 14 Blood Pressure 152/108 H 124/78 H Blood Pressure Mean 122 93 Pulse Ox 96 98 Oxygen Delivery Method Room Air MDM MDM MDM Narrative Medical decision making narrative: Concern is for new onset atrial fibrillation. Although she was documented under 20 bpm, on examination she is in the 90s. EKG was obtained and interpreted by myself independently as atrial fibrillation that is rate controlled at [address] changes. No STEMI. I reviewed her laboratory work and she has normal white count of 5.6, hemoglobin 13.7, hematocrit 42.2, platelet count 251. Electrolyte panel shows normal sodium of 140 with potassium 4.1, glucose elevated 227 but anion gap normal at 12. Magnesium normal at 2.1. LFTs are grossly unremarkable. TSH low at 0.096. Chest x-ray interpreted by myself independently as no acute process, no pneumonia, no pneumothorax. I reviewed the radiology report which confirms my independent interpretation. At this point in time, she is rate controlled currently with heart rate at 104 bpm. I discussed patient with Dr. Fercho Pat with cardiology. In discussion with the patient, through shared decision making, they prefer outpatient follow-up as opposed to observation or admission. Patient was given her first dose of metoprolol tartrate 50 mg here as well as Eliquis 5 mg. She is to take the metoprolol and Eliquis twice daily. She was told of the risk of increased bleeding and spontaneous hemorrhage with the use of Eliquis, and risk-benefit ratio was discussed as well. At this point in time, I do feel she can be discharged to follow-up with cardiology. She is to return with consistently elevated heart rate above 120 bpm, new or worsening symptoms including chest pain or shortness of breath. Disposition is discharged home in stable condition. History Record Review Discussion w/independent historian: Patient and Family Additional record(s) reviewed:: Prior ED visit Lab Data Attestation: I reviewed the patient's lab results. Labs: Laboratory Results - last 24 hr 01/04/25 13:12 WBC 5.6 RBC 4.68 Hgb 13.7 Hct 42.2 MCV 90.2 MCH 29.3 MCHC 32.5 RDW Std Deviation 41.3 RDW Coeff of Albert 12.7 Plt Count 251 MPV 9.8 Sodium 140 Potassium 4.1 Chloride 102 Carbon Dioxide 25.9 Anion Gap 12 (more content not included)... Normal [facility] Erythrocyte distribution wid th ratioOrdered By: Kenji Castro on 01-04-2025 Erythrocyte distribution width (RBC) [Ratio] 12.7 % 11.6-14.6 [facility] Erythrocyte distribution wid th standard deviationOrdered By: Kenji Castro on 01-04-2025 Erythrocyte distribution width (RBC) [Ratio] 41.3 fl 35.1-43.9 [facility] Glomerular filtration rate ( GFR) estimation/1.73 sq m using serum, plasma, or whole bOrdered By: Kenji Castro on 01-04-2025 GFR/1.73 sq M.predicted among non-blacks MDRD (S/P/Bld) [Vol rate/Area] 76 mL/min/{1.73_m2} >60 [facility] Comment on above: mL/min/1.73m2 CKD-EP I Creatinine Equation (2020) Hematocrit Auto (Bld) [Volum e fraction]Ordered By: Kenji Castro on 01-04-2025 Hematocrit (Bld) [Volume fraction] 42.2 % 37-47 [facility] Hemoglobin measurementOrdere d By: Kenji Castro on 01-04-2025 Hemoglobin (Bld) [Mass/Vol] 13.7 g/dL 12.0-15.0 [facility] Laboratory - Chemistry and C hemistry - challengeOrdered By: Kenji Castro on 01-04-2025 AST [Catalytic activity/Vol] 22 U/L <32 [facility] MCV (mean corpuscular volume ) determinationOrdered By: Kenji Castro on 01-04-2025 MCV (RBC) [Entitic vol] 90.2 fL 81-99 [facility] Magnesiumon 01-04-2025 Magnesium [Mass/Vol] 2.1 mg/dL Normal 1.5-2.2 [facility] Comment on above: Performed By: #### L [id number], L500.4050, L100.0500, L501.5200 #### [facility] [address] [place], [address] Magnesium measurement (mass/ volume)Ordered By: Kenji Castro on 01-04-2025 Magnesium (Unsp spec) [Mass/Vol] 2.1 mg/dL 1.5-2.2 [facility] Mean corpuscular hemoglobin (MCH) determinationOrdered By: Kenji Castro on 01-04-2025 MCH (RBC) [Entitic mass] 29.3 pg 27.0-32.0 [facility] Mean corpuscular hemoglobin concentration (MCHC) determinationOrdered By: Kenji Castro on 01-04-2025 MCHC (RBC) [Mass/Vol] 32.5 g/dL 32-36 [facility] Mean platelet volume determi nationOrdered By: Kenji Castro on 01-04-2025 Platelet mean volume (Bld) [Entitic vol] 9.8 fL 6.2-12.0 [facility] Platelet countOrdered By: David Castro on 01-04-2025 Platelets (Bld) [#/Vol] 251 10*3/uL 150-450 [facility] Potassium measurement (mass/ volume)Ordered By: Kenji Castro on 01-04-2025 Potassium (Unsp spec) [Mass/Vol] 4.1 mmol/L 3.3-5.1 [facility] RBC Auto (Bld) [#/Vol]Ordere d By: Kenji Castro on 01-04-2025 RBC (Bld) [#/Vol] 4.68 10*6/uL 4.2-5.4 [facility] Serum creatinine measurement (mass/volume)Ordered By: Kenji Castro on 01-04-2025 Creatinine [Mass/Vol] 0.79 mg/dL 0.70-1.20 [facility] Serum globulin measurementOr dered By: Kenji Castro on 01-04-2025 Globulin (S) [Mass/Vol] 2.8 g/dL 2.2-4.2 [facility] Serum glucose measurement (m ass/volume)Ordered By: Kenji Castro on 01-04-2025 Glucose [Mass/Vol] 227 mg/dL High 70-99 [facility] Serum or plasma alanine pappas otransferase (ALT) measurementOrdered By: Kenji Castro on 01-04-2025 ALT [Catalytic activity/Vol] 20 U/L <35 [facility] Serum or plasma albumin aleah urement (mass/volume)Ordered By: Kenji Castro on 01-04-2025 Albumin [Mass/Vol] 4.4 g/dL 3.4-4.8 [facility] Serum or plasma albumin/glob ulin mass ratioOrdered By: Kenji Castro on 01-04-2025 Albumin/Globulin [Mass ratio] 1.6 {ratio} 0.9-2.4 [facility] Serum or plasma alkaline sarah sphatase measurementOrdered By: Kenji Castro on 01-04-2025 ALP [Catalytic activity/Vol] 99 U/L 35-104 [facility] Serum or plasma calcium aleah urement (mass/volume)Ordered By: Kenji Castro on 01-04-2025 Calcium [Mass/Vol] 10.0 mg/dL 7.6-11.0 [facility] Serum or plasma urea nitroge n measurement (mass/volume)Ordered By: Kenji Castro on 01-04-2025 Urea nitrogen [Mass/Vol] 16 mg/dL 4-19 [facility] Sodium levelOrdered By: Kenji Castro on 01-04-2025 Sodium [Moles/Vol] 140 mmol/L 133-145 [facility] TSH DL <= 0.005 mIU/L QnOrde red By: Kenji Castro on 01-04-2025 TSH Qn 0.096 uIU/mL Low 0.300-4.200 [facility] Thyroid Stim Hormone (TSH)on 01-04-2025 TSH 0.096 uIU/mL Low 0.300-4.200 [facility] Comment on above: Performed By: #### L [id number], L500.4050, L100.0500, L501.5200 #### [facility] Laboratory [facility] [place], [address] Total proteinOrdered By: Marci martinez Charlie on 01-04-2025 Protein [Mass/Vol] 7.2 g/dL 5.9-8.4 [facility] White blood cell (WBC) count Ordered By: Kenji Castro on 01-04-2025 WBC (Bld) [#/Vol] 5.6 10*3/uL 4.4-11.0 [facility] CNOVon 12-28-2024 CNOV Office Visit (UCWSTR) ---- DORYS GOMES ([id number]) 1945 F Date Time Provider Department 12/28/24 12:30 PM [facility] During your visit today, we recorded the following information about you: Temperature Pulse Respiration Blood pressure 97.3 degrees 92/minute 20/minute 135/78 Weight 76 kg Shine Tellez PA 12/28/2024 1:33 PM Signed [facility] Subjective Dorys Gomes is a 79 year old female. Patient presents with: Fall: Fell on Friday and unsure how she landed, wrist pain, swelling and bruising since, LROM, increased pain in thumb area, x 4 days HPI Right Wrist Pain: - Fell onto right hand 2 days ago. - Pain localized to the radial side of the wrist. - Denies head trauma or loss of consciousness during the fall. - Reports tenderness to palpation on the radial side, less so on the ulnar side. - Denies pain with thumb movement. - Noted swelling in the wrist. - Denies numbness or paresthesia in the fingers. - Took Advil every 3-4 hours on the night of the fall for pain management. - Right-hand dominant. Review of Systems Musculoskeletal: (+) right wrist pain, (+) right hand swelling, (-) right thumb pain Neurological: (-) syncope, (-) paresthesia Objective BP 135/78 Pulse 92 Temp 36.3 ?C (97.3 ?F) Resp 20 Wt 76 kg (167 lb 8.8 oz) SpO2 98% BMI 27.04 kg/m? Physical Exam Vitals and nursing note reviewed. Constitutional: General: She is not in acute distress. Appearance: Normal appearance. She is not toxic-appearing. Musculoskeletal: Right wrist: Swelling, tenderness and bony tenderness present. No snuff box tenderness or crepitus. Decreased range of motion. Normal pulse. Right hand: Swelling present. No tenderness or bony tenderness. Normal range of motion. Normal pulse. Comments: Tenderness over radial side of right wrist. No snuffbox tenderness. Mild swelling about the wrist. Nontender ulnar side of the wrist decreased flexion extension of the wrist due to pain. Nontender hand. Diffuse swelling noted of right hand. Hand Tacker strength 5/5 normal ROM all digits right hand cap refill less than 2 seconds. Small amount of bruising and mild tenderness over the right thumb thenar eminence. Skin: General: Skin is warm and dry. Neurological: Mental Status: She is alert. {1. Right wrist pain (M25.531) - Patient experienced a fall onto the right hand two days ago, resulting in pain primarily on the radial side of the wrist. - Physical exam reveals tenderness on the radial side, mild tenderness on the ulnar side, and soft tissue swelling. No pain with thumb movement or numbness in the fingers. Patient is able to make a fist and extend fingers without pain. - X-ray of the right wrist shows no fractures or dislocations, but some evidence of arthritis. - Diagnosis is likely a sprain. - Advised elevation of the wrist on pillows, application of ice, and use of Tylenol or Motrin as needed for pain management over the next week. - Patient may continue using Advil for inflammation. - Compression wrapping is recommended to help reduce swelling. Recording using [employer] software for draft documentation of the visit was discussed with the patient/authorized tour sales representative; all questions welcomed and answered. Patient/authorized tour sales representative agreed to proceed Differential Diagnoses - Right wrist pain/injury is more likely for the following reason(s): suggested by HANDP - Right wrist fracture/dislocatio n is less likely for the following reason(s): no evidence on imaging Disposition The patient was discharged. Procedures Allergies As of Date: 12/28/2024 Noted Allergy Reaction PENICILLINS 07/29/2005 Date Reviewed: 12/28/2024 Reviewed by: Samina Ruvalcaba LPN - Fully Assessed Reason for Visit: Fall [218] Cmt: Fell on Friday and unsure how she landed, wrist pain, swelling and bruising since, LROM, increased pain in thumb area, x 4 days Primary Visit Diagnosis:Right wrist pain [M25.531] Order(s):XR HAND GENERAL 3V PA/LAT/OBL RIGHT [[id number]] Order #: [id number] FUTURE XR WRIST INJURY 4V PA/LAT/OBL/SCAPH RIGHT [[id number]] Order #: [id number] FUTURE Prescriptions as of 12/28/2024 - PARoxetine (PAXIL) 20 mg tablet Take 1 tablet by mouth once daily. - Cholecalciferol, Vitamin D3, 1,000 unit cap Take 1 capsule by mouth once daily. - Fish Oil-Conowingo-3 Fatty Acids 300-1,000 mg cpDR Take by mouth. 6 daily - Calcium and Magnesium Carbonates ORAL per tablet Take 1 tablet by mouth. 3 tablets - alpha tocopheryl acetate 400 unit ORAL capsule Take 1 capsule by mouth twice daily. Problem List As Of Date 12/28/2024 Noted Resolved DIABETES MELLITUS TYPE II UNCONTR UNCOMPL [IMO0*06/16/2006 05/25/2015 Hypothyroidism [E03.9] 09/01/2006 09/21/2020 Vitamin D deficiency [E55.9] 11/16/2010 12/04/2016 Hyperlipidemia with target LDL less steve (more content not included)... Normal [facility] No Panel Informationon 12-28 IMPRESSION: No acute osseous abnormality. Mild degenerative changes. Senior Php Web Developer: KUSH Transcribe Date/Time: Dec 28 2024 1:13P Dictated by : PEEWEE MILLER DO This examination was interpreted and the report reviewed and electronically signed by: PEEWEE MILLER DO on Dec 28 2024 1:17PM [facility] DIVISION OF RADIOLOGY Radiology Study observation (narrative) [facility] No Panel InformationOrdered By: [facility] Provider on 12-28-[address] [facility] XR HAND 3V PA/LAT/OBL RTon 0 12-28-2024 XR HAND 3V PA/LAT/OBL RT * * *Final Repo rt* * * DATE OF EXAM: Dec 28 2024 1:03PM WOX [id number] - XR HAND 3V PA/LAT/OBL RT / PROCEDURE REASON: Right wrist pain * * * * Physician Interpretation * * * * EXAMINATION: XR WRIST 4V PA/LAT/OBL/SCAPH RT, XR HAND 3V PA/LAT/OBL RT TECHNOLOGIST PROVIDED HISTORY: ACUTE PAIN IN RADIAL SIDE OF WRIST AFTER RECENT FALL CLINICAL INFORMATION: 79 years old Female with Right wrist pain TECHNIQUE: XR WRIST 4V PA/LAT/OBL/SCAPH RT, XR HAND 3V PA/LAT/OBL RT Laterality: RIGHT Number of different views (projections): 4 views of the RIGHT wrist and 3 views of the RIGHT hand. COMPARISON: None RESULT: No acute fracture. Osteopenia. Slight flexion deformity at the 5th DIP joint. Mild degenerative change 1st CMC joint and mild scattered degenerative changes at the interphalangeal joints. Joint spaces are otherwise maintained. IMPRESSION: No acute osseous abnormality. Mild degenerative changes. Senior Php Web Developer: PSCB Transcribe Date/Time: Dec 28 2024 1:13P Dictated by : PEEWEE MILLER DO This examination was interpreted and the report reviewed and electronically signed by: PEEWEE MILLER DO on Dec 28 2024 1:17PM EST [id number] Normal [facility] XR Hand - right PA and Later al and Obliqueon 12-28-2024 * * *Final Report* * * DATE OF EXAM: Dec 28 2024 1:03PM WOX [id number] - XR HAND 3V PA/LAT/OBL RT / PROCEDURE REASON: Right wrist pain * * * * Physician Interpretation * * * * EXAMINATION: XR WRIST 4V PA/LAT/OBL/SCAPH RT, XR HAND 3V PA/LAT/OBL RT TECHNOLOGIST PROVIDED HISTORY: ACUTE PAIN IN RADIAL SIDE OF WRIST AFTER RECENT FALL CLINICAL INFORMATION: 79 years old Female with Right wrist pain TECHNIQUE: XR WRIST 4V PA/LAT/OBL/SCAPH RT, XR HAND 3V PA/LAT/OBL RT Laterality: RIGHT Number of different views (projections): 4 views of the RIGHT wrist and 3 views of the RIGHT hand. COMPARISON: None RESULT: No acute fracture. Osteopenia. Slight flexion deformity at the 5th DIP joint. Mild degenerative change 1st CMC joint and mild scattered degenerative changes at the interphalangeal joints. Joint spaces are otherwise maintained. DIVISION OF RADIOLOGY Provider, [facility] [place] - 12/28/2024 * * *Final Report* * * DATE OF EXAM: Dec 28 2024 1:03PM WOX [id number] - XR HAND 3V PA/LAT/OBL RT / PROCEDURE REASON: Right wrist pain * * * * Physician Interpretation * * * * EXAMINATION: XR WRIST 4V PA/LAT/OBL/SCAPH RT, XR HAND 3V PA/LAT/OBL RT TECHNOLOGIST PROVIDED HISTORY: ACUTE PAIN IN RADIAL SIDE OF WRIST AFTER RECENT FALL CLINICAL INFORMATION: 79 years old Female with Right wrist pain TECHNIQUE: XR WRIST 4V PA/LAT/OBL/SCAPH RT, XR HAND 3V PA/LAT/OBL RT Laterality: RIGHT Number of different views (projections): 4 views of the RIGHT wrist and 3 views of the RIGHT hand. COMPARISON: None RESULT: No acute fracture. Osteopenia. Slight flexion deformity at the 5th DIP joint. Mild degenerative change 1st CMC joint and mild scattered degenerative changes at the interphalangeal joints. Joint spaces are otherwise maintained. IMPRESSION IMPRESSION: No acute osseous abnormality. Mild degenerative changes. Senior Php Web Developer: KUSH Transcribe Date/Time: Dec 28 2024 1:13P Dictated by : PEEWEE MILLER DO This examination was interpreted and the report reviewed and electronically signed by: PEEWEE MILLER DO on Dec 28 2024 1:17PM EST [facility] XR WRIST 4V PA/LAT/OBL/SCAPH RTon 12-28-2024 XR WRIST 4V PA/LAT/OBL/SCAPH RT * * *Final Report* * * DATE OF EXAM: Dec 28 2024 1:03PM WOX [id number] - XR WRIST 4V PA/LAT/OBL/SCAPH RT / PROCEDURE REASON: Right wrist pain * * * * Physician Interpretation * * * * EXAMINATION: XR WRIST 4V PA/LAT/OBL/SCAPH RT, XR HAND 3V PA/LAT/OBL RT TECHNOLOGIST PROVIDED HISTORY: ACUTE PAIN IN RADIAL SIDE OF WRIST AFTER RECENT FALL CLINICAL INFORMATION: 79 years old Female with Right wrist pain TECHNIQUE: XR WRIST 4V PA/LAT/OBL/SCAPH RT, XR HAND 3V PA/LAT/OBL RT Laterality: RIGHT Number of different views (projections): 4 views of the RIGHT wrist and 3 views of the RIGHT hand. COMPARISON: None RESULT: No acute fracture. Osteopenia. Slight flexion deformity at the 5th DIP joint. Mild degenerative change 1st CMC joint and mild scattered degenerative changes at the interphalangeal joints. Joint spaces are otherwise maintained. IMPRESSION: No acute osseous abnormality. Mild degenerative changes. Senior Php Web Developer: KUSH Transcribe Date/Time: Dec 28 2024 1:13P Dictated by : PEEWEE MILLER DO This examination was interpreted and the report reviewed and electronically signed by: PEEWEE MILLER DO on Dec 28 2024 1:17PM EST [id number] Normal [facility] XR Wrist - right 4 Viewson 0 12-28-2024 * * *Final Report* * * DATE OF EXAM: Dec 28 2024 1:03PM WOX [id number] - XR WRIST 4V PA/LAT/OBL/SCAPH RT / PROCEDURE REASON: Right wrist pain * * * * Physician Interpretation * * * * EXAMINATION: XR WRIST 4V PA/LAT/OBL/SCAPH RT, XR HAND 3V PA/LAT/OBL RT TECHNOLOGIST PROVIDED HISTORY: ACUTE PAIN IN RADIAL SIDE OF WRIST AFTER RECENT FALL CLINICAL INFORMATION: 79 years old Female with Right wrist pain TECHNIQUE: XR WRIST 4V PA/LAT/OBL/SCAPH RT, XR HAND 3V PA/LAT/OBL RT Laterality: RIGHT Number of different views (projections): 4 views of the RIGHT wrist and 3 views of the RIGHT hand. COMPARISON: None RESULT: No acute fracture. Osteopenia. Slight flexion deformity at the 5th DIP joint. Mild degenerative change 1st CMC joint and mild scattered degenerative changes at the interphalangeal joints. Joint spaces are otherwise maintained. DIVISION OF RADIOLOGY Provider, [facility] [place] - 12/28/2024 * * *Final Report* * * DATE OF EXAM: Dec 28 2024 1:03PM WOX [id number] - XR WRIST 4V PA/LAT/OBL/SCAPH RT / PROCEDURE REASON: Right wrist pain * * * * Physician Interpretation * * * * EXAMINATION: XR WRIST 4V PA/LAT/OBL/SCAPH RT, XR HAND 3V PA/LAT/OBL RT TECHNOLOGIST PROVIDED HISTORY: ACUTE PAIN IN RADIAL SIDE OF WRIST AFTER RECENT FALL CLINICAL INFORMATION: 79 years old Female with Right wrist pain TECHNIQUE: XR WRIST 4V PA/LAT/OBL/SCAPH RT, XR HAND 3V PA/LAT/OBL RT Laterality: RIGHT Number of different views (projections): 4 views of the RIGHT wrist and 3 views of the RIGHT hand. COMPARISON: None RESULT: No acute fracture. Osteopenia. Slight flexion deformity at the 5th DIP joint. Mild degenerative change 1st CMC joint and mild scattered degenerative changes at the interphalangeal joints. Joint spaces are otherwise maintained. IMPRESSION IMPRESSION: No acute osseous abnormality. Mild degenerative changes. Senior Php Web Developer: PSCB Transcribe Date/Time: Dec 28 2024 1:13P Dictated by : PEEWEE MILLER DO This examination was interpreted and the report reviewed and electronically signed by: PEEWEE MILLER DO on Dec 28 2024 1:17PM [facility] CNOVon 07-23-2024 CNOV Office Visit (FAMPWS) ---- DORYS GOMES ([id number]) 1945 F Date Time Provider Department 07/23/24 4:20 PM SONAM HERNANDEZ During your visit today, we recorded the following information about you: Pulse Respiration Blood pressure Weight 76/minute 16/minute 116/70 76.6 kg Height 1.676 m Sonam Hernandez MD 07/23/2024 4:37 PM Signed Chief Complaint Patient presents with: Wellness HPI Dorys Gomes is a 79 year old female who presents here today for physical. Pt here today for a Wellness visit. Pt requesting her visits to be every two years due to cost and being healthy. Has not been to [facility] lately, generally had blood work done. She does not feel she needs to have lab work completed. No bowel, gi, or urinary issues. Cardio - Denies any chest pain, sob, or dizziness. Depression/JESUS: Stable on her current regimen of Paxil 20 mg once daily. Overall sleeps okay, but doesn't require as much sleep as she used too. Lipid: Tries to watch her diet, but admits at times she cheats especially over the Holiday's. Does do some exercise, mostly during the summer/warmer months. Not as much during the winter. Does have a stationary bike. Does keep busy with cleaning her house and keeping up with house chores. No longer taking Crestor 5 mg daily. DM - A1c controlled and on no current medications. Was at her [facility] prior to visit today and got her eye's dilated. Wearing sunglasses in office visit today. Does have Macular Degeneration and also has cataracts. Follows with Dr. Orozco. Takes Vitamins. HM - Declines all vaccines. Does have a Will. Past medical history, appointments, medications, allergies reviewed. Previous Medical History PAST MEDICAL HISTORY Diagnosis Date Adjustment disorder with depressed mood 09/09/2005 ANXIETY STATE NOS 09/09/2005 DIABETES MELLITUS TYPE II UNCONTR UNCOMPL 06/16/2006 Hyperlipidemia LDL goal < 100 08/17/2012 HYPOTHYROIDISM NOS 09/01/2006 Other abnormal blood chemistry Other and unspecified hyperlipidemia Vitamin D deficiency 11/16/2010 Previous Surgical History PAST SURGICAL HISTORY Procedure Laterality Date LIG/TRNSXJ FLP TUBE ABDL/VAG APPR UNI/BI Family History FAMILY HISTORY Problem Relation Age of Onset Cancer Mother liver Heart Father Diabetes Father Patient Allergies ALLERGIES Allergen Reactions Penicillins Current Medications Current Outpatient Medications on File Prior to Visit Medication Sig PARoxetine (PAXIL) 20 mg tablet Take 1 tablet by mouth once daily. rosuvastatin (CRESTOR) 5 mg tablet Take one tablet at bedtime three times/week. Cholecalciferol, Vitamin D3, 1,000 unit cap Take 1 capsule by mouth once daily. Fish Oil-Conowingo-3 Fatty Acids 300-1,000 mg cpDR Take by mouth. 6 daily Calcium and Magnesium Carbonates ORAL per tablet Take 1 tablet by mouth. 3 tablets alpha tocopheryl acetate 400 unit ORAL capsule Take 1 capsule by mouth twice daily. No current facility-administer ed medications on file prior to visit. Social History Social History Tobacco Use Smoking status: Never Smokeless tobacco: Never Substance Use Topics Alcohol use: No Drug use: No EXAM: BP 116/70 (BP Site: Left Arm, BP Position: Sitting, BP Cuff Size: Regular Adult) Pulse 76 Resp 16 Wt 76.6 kg (168 lb 14 oz) BMI 27.26 kg/m? General Appearance: Well appearing, alert, in no acute distress, well-hydrated, well nourished. Wearing sunglasses. Lungs: Lungs clear to auscultation. No wheezing, rhonchi, rales.. Heart: RRR without murmur, gallop, or rubs. No ectopy. Abdomen: Normal abdominal exam. Health Maintenance List Diabetic Foot Exam due on 12/04/2017 HbA1C due on 09/28/2018 Urine Albumin:Creatinine Ratio due on 03/31/2019 LDL Cholesterol due on 03/31/2019 Advance Directive Discussion Never done Influenza Vaccine(1) due on 01/17/2025 DTaP,Tdap,Td Vaccine(2 - Tdap) due on 07/23/2025 RSV Vaccine(1 - 1-dose 75+ series) due on 07/23/2025 Shingrix Vaccine(1 of 2) due on 07/23/2025 Covid-19 Vaccine(1 - season) due on 07/23/2025 Pneumococcal Vaccine: 50+(1 of 2 - PCV) due on 07/23/2025 Dilated Retinal Exam due on 07/23/2025 Annual PCP Team Chronic Disease Visit due on 07/23/2025 Bone Density Screening Addressed Colorectal Cancer Screening Discontinued Data reviewed None ASSESSMENT/PLAN: 1. Wellness examination - ICD9: V70.0, ICD10: Z00.00 (primary diagnosis) - Counseled on healthy diet and regular exercise - Discussed need and benefit for weight loss. BMI 27.26 kg/(m2) - Follow up every two years. 2. Controlled type 2 diabetes mellitus without complication, without long-term current use of insulin (HCC) - ICD9: 250.00, ICD10: E11.9 - continue watching diet and exercise 3. Hyperlipidemia with target LDL less than 100 - ICD9: 272.4, ICD10: E78.5 - Counseled on healthy diet and (more content not included)... Normal [facility] UA DIP, URINE (POC)on 2022 BILIRUBIN UA (POCT) Negative Negative [facility] CLARITY UA (POCT) Clear [facility] COLOR UA (POCT) Yellow [facility] GLUCOSE UA (POCT) Negative Negative mg/dL [facility] Hemoglobin Ql (U) Large Abnormal Negative [facility] KETONE UA (POCT) Negative Negative mg/dL [facility] LEUKOCYTES UA (POCT) Small Abnormal Negative [facility] NITRITE UA (POCT) Negative [facility] PH UA (POCT) 5.5 4.5 - 8.[address] [facility] Protein Ql (U) 100 mg/dL Abnormal Negative mg/dL [facility] SPECIFIC GRAVITY UA (POCT) 1.020 1.005 - 1.[address] [facility] UROBILINOGEN UA (POCT) 0.2 E.U./dL Fariba l E.U./dL [facility] Vital Signs Date Time Vital Sign Value Performing Clinician Facility 02-14-2025 12:36-0400 Body mass index (BMI) [Ratio] 27.08 kg/m2 Aubrey Jaimes APRN.CNP Work Phone: [facility] 02-14-2025 12:36-0400 Body temperature 96.21 [degF] Aubrey Jaimes APRN.CNP Work Phone: [facility] 02-14-2025 12:36-0400 Body weight 76.1 kg Aubrey [facility] DIAMOND ASSORTER.RN CHEMICAL DEPENDENCY Work Phone: [facility] 02-14-2025 12:36-0400 Diastolic blood pressure 80 mm[Hg] [facility] DIAMOND ASSORTER.RN CHEMICAL DEPENDENCY Work Phone: [facility] 02-14-2025 12:36-0400 Heart rate 95 /min [facility] DIAMOND ASSORTER.RN CHEMICAL DEPENDENCY Work Phone: [facility] 02-14-2025 12:36-0400 Respiratory rate 20 /min [facility] DIAMOND ASSORTER.RN CHEMICAL DEPENDENCY Work Phone: [facility] 02-14-2025 12:36-0400 SaO2% (BldA) [Mass fraction] 99 % [facility] DIAMOND ASSORTER.RN CHEMICAL DEPENDENCY Work Phone: [facility] 02-14-2025 12:36-0400 Systolic blood pressure 110 mm[Hg] [facility] DIAMOND ASSORTER.RN CHEMICAL DEPENDENCY Work Phone: [facility] 01-26-2025 09:18-0400 Body height 170.18 cm Kenji Castro MD Work Phone: [facility] 01-26-2025 09:18-0400 Body mass index (BMI) [Ratio] 26.2 kg/m2 Kenji Castro MD Work Phone: [facility] 01-26-2025 09:18-0400 Body weight 75.74 kg Kenji Castro MD Work Phone: [facility] 01-26-2025 09:18-0400 Diastolic blood pressure 84 mm[Hg] Kenji Castro MD Work Phone: [facility] 01-26-2025 09:18-0400 Heart rate 78 /min Kenji Castro MD Work Phone: [facility] 01-26-2025 09:18-0400 Respiratory rate 18 /min Kenji Castro MD Work Phone: [facility] 01-26-2025 09:18-0400 SaO2% (BldA) [Mass fraction] 97 % Kenji Castro MD Work Phone: [facility] 01-26-2025 09:18-0400 Systolic blood pressure 126 mm[Hg] Kenji Castro MD Work Phone: [phone])[phone] [place] [address] 01-04-2025 15:28-0400 Body temperature 98 [degF] Kenji Castro MD Work Phone: 9(256)824-131945 [place] [address] 01-04-2025 15:28-0400 Diastolic blood pressure 82 mm[Hg] Kenji Castro MD Work Phone: 4(016)512-885745 [place] [address] 01-04-2025 15:28-0400 Heart rate 85 /min Kenji Castro MD Work Phone: 0(292)[phone] [place] [address] 01-04-2025 15:28-0400 Respiratory rate 17 /min Kenji Castro MD Work Phone: 3(007)024-646145 [place] [address] 01-04-2025 15:28-0400 SaO2% (BldA) [Mass fraction] 98 % Kenji Castro MD Work Phone: 8(591)[phone] [place] [address] 01-04-2025 15:28-0400 Systolic blood pressure 127 mm[Hg] Kenji Castro MD Work Phone: [facility] 01-04-2025 13:02-0400 Body height 170.18 cm Kenji Castro MD Work Phone: [facility] 01-04-2025 13:02-0400 Body mass index (BMI) [Ratio] 26.2 kg/m2 Kenji Castro MD Work Phone: [facility] 01-04-2025 13:02-0400 Body weight 76.02 kg Kenji Castro MD Work Phone: [facility] 12-28-2024 12:33-0400 Body mass index (BMI) [Ratio] 27.04 kg/m2 Shine BOOKER Work Phone: [facility] 12-28-2024 12:33-0400 Body temperature 97.3 [degF] Krislyn Aberegg PA Work Phone: [facility] 12-28-2024 12:33-0400 Body weight 76 kg Krislyn Aberegg PA Work Phone: [facility] 12-28-2024 12:33-0400 Diastolic blood pressure 78 mm[Hg] Krislyn Aberegg PA Work Phone: [facility] 12-28-2024 12:33-0400 Heart rate 92 /min Krislyn Aberegg PA Work Phone: [facility] 12-28-2024 12:33-0400 Respiratory rate 20 /min Krislyn Aberegg PA Work Phone: [facility] 12-28-2024 12:33-0400 SaO2% (BldA) [Mass fraction] 98 % Krislyn Aberegg PA Work Phone: [facility] 12-28-2024 12:33-0400 Systolic blood pressure 135 mm[Hg] Krislyn Aberegg PA Work Phone: [facility] 07-23-2024 16:13-0500 Body height 167.6 cm Sonam Hernandez MD Work Phone: [facility] 07-23-2024 16:13-0500 Body mass index (BMI) [Ratio] 27.26 kg/m2 Sonam Hernandez MD Work Phone: [facility] 07-23-2024 16:13-0500 Body weight 76.6 kg Sonam Hernandez MD Work Phone: [facility] 07-23-2024 16:13-0500 Diastolic blood pressure 70 mm[Hg] Sonam Hernandez MD Work Phone: [facility] 07-23-2024 16:13-0500 Heart rate 76 /min Sonam Hernandez MD Work Phone: [facility] 07-23-2024 16:13-0500 Respiratory rate 16 /min Sonam Hernandez MD Work Phone: [facility] 07-23-2024 16:13-0500 Systolic blood pressure 116 mm[Hg] Sonam Hernandez MD Work Phone: [facility] 06-09-2023 11:55-0500 Body height 167.6 cm Sonam Hernandez MD Work Phone: [facility] 06-09-2023 11:55-0500 Body weight 72.89 kg Sonam Hernandez MD Work Phone: [facility] 06-09-2023 11:55-0500 Diastolic blood pressure 68 mm[Hg] Sonam Hernandez MD Work Phone: [facility] 06-09-2023 11:55-0500 Heart rate 84 /min Sonam Hernandez MD Work Phone: [facility] 06-09-2023 11:55-0500 Respiratory rate 16 /min Sonam Hernandez MD Work Phone: [facility] 06-09-2023 11:55-0500 Systolic blood pressure 110 mm[Hg] Sonam Hernandez MD Work Phone: [facility] 05-09-2023 13:43-0400 Body temperature 97.81 [degF] Laura Butler DIAMOND ASSORTER.RN CHEMICAL DEPENDENCY Work Phone: [facility] 05-09-2023 13:43-0400 Body weight 74.39 kg Laura Butler DIAMOND ASSORTER.RN CHEMICAL DEPENDENCY Work Phone: [facility] 05-09-2023 13:43-0400 Diastolic blood pressure 83 mm[Hg] Laura Butler DIAMOND ASSORTER.RN CHEMICAL DEPENDENCY Work Phone: [facility] 05-09-2023 13:43-0400 Heart rate 97 /min Laura Butler DIAMOND ASSORTER.RN CHEMICAL DEPENDENCY Work Phone: [facility] 05-09-2023 13:43-0400 Respiratory rate 18 /min Laura Butler DIAMOND ASSORTER.RN CHEMICAL DEPENDENCY Work Phone: [facility] 05-09-2023 13:43-0400 SaO2% (BldA) [Mass fraction] 98 % Laura Butler DIAMOND ASSORTER.RN CHEMICAL DEPENDENCY Work Phone: [facility] 05-09-2023 13:43-0400 Systolic blood pressure 123 mm[Hg] Laura Butler DIAMOND ASSORTER.RN CHEMICAL DEPENDENCY Work Phone: [facility] 11-14-2021 10:29-0400 Body height 170.2 cm Latina Galvinhof DIAMOND ASSORTER.RN CHEMICAL DEPENDENCY Work Phone: [facility] 11-14-2021 10:29-0400 Body weight 72.12 kg Latina Galvinhof DIAMOND ASSORTER.RN CHEMICAL DEPENDENCY Work Phone: [facility] 11-14-2021 10:29-0400 Diastolic blood pressure 72 mm[Hg] La Galvinhof DIAMOND ASSORTER.RN CHEMICAL DEPENDENCY Work Phone: [facility] 11-14-2021 10:29-0400 Heart rate 65 /min La Galvinhof DIAMOND ASSORTER.RN CHEMICAL DEPENDENCY Work Phone: [facility] 11-14-2021 10:29-0400 Respiratory rate 14 /min La Galvinhof DIAMOND ASSORTER.RN CHEMICAL DEPENDENCY Work Phone: [facility] 11-14-2021 10:29-0400 SaO2% (BldA) [Mass fraction] 97 % Latina Galvinhof DIAMOND ASSORTER.RN CHEMICAL DEPENDENCY Work Phone: [facility] 11-14-2021 10:29-0400 Systolic blood pressure 136 mm[Hg] La Galvinhof DIAMOND ASSORTER.RN CHEMICAL DEPENDENCY Work Phone: [facility] Encounters Encounter Date Encounter Type Care Provider Facility Start: 02-15-2025 End: 02-15-2025 Follow-up encounter Shine BOOKER Work Phone: [facility] Comment on above: Results Start: 02-14-2025 End: 02-14-2025 Office outpatient visit 25 minutes Aubrey Jaimes DIAMOND ASSORTER.RN CHEMICAL DEPENDENCY Work Phone: [facility] Comment on above: Urinary frequency (P rimary Dx) Start: 02-14-2025 End: 02-14-2025 ambulatory SONAM HERNANDEZ Facility:[facility] Start: 01-26-2025 End: 01-26-[address] Philip Dietz MD -[facility] Work Phone: Start: 01-26-2025 End: 01-26-2025 ambulatory Kenji Castro MD Work Phone: -[facility] Start: 01-04-2025 End: 01-04-2025 Telephone encounter Sonam Hernandez MD Work Phone: [facility] Comment on above: Patient Update Start: 01-04-2025 End: 01-04-2025 Emergency department patient visit Kenji Castro MD Work Phone: -Emergency Department Work Phone: Start: 12-28-2024 End: 12-28-2024 Subsequent hospital visit by physician [facility] [place] Work Phone: Radiology Comment on above: Right wrist pain [M2 5.531] Start: 12-28-2024 End: 12-28-2024 Office outpatient visit 15 minutes Shine BOOKER Work Phone: [facility] Comment on above: Right wrist pain (Pr imary Dx) Start: 12-28-2024 End: 12-28-2024 ambulatory SHINE TELLEZ Facility:[facility] Start: 07-23-2024 End: 07-23-2024 ambulatory SONAM HERNANDEZ Facility:[facility] Start: 07-23-2024 End: 07-23-2024 Patient encounter procedure Sonam Hernandez MD Work Phone: [facility] Comment on above: Wellness examination (Primary Dx); Controlled type 2 diabetes mellitus without complication, without long-term current use of insulin (HCC); Hyperlipidemia with target LDL less than 100; Anxiety and depression Start: 07-23-2024 End: 07-23-2024 Patient encounter status Sonam Hernandez MD Work Phone: [facility] Start: 07-20-2024 End: 07-20-2024 Refill Sonam Hernandez MD Work Phone: [facility] Comment on above: Refill Request Start: 06-09-2023 End: 06-09-2023 Patient encounter procedure Sonam Hernandez MD Work Phone: [facility] Comment on above: Anxiety and depressi on (Primary Dx); Controlled type 2 diabetes mellitus without complication, without long-term current use of insulin (HCC); Hyperlipidemia with target LDL less than 100 Start: 05-10-2023 Telephone encounter Neli plummer PA-C Work Phone: [facility] Comment on above: Results Start: 05-09-2023 End: 05-09-2023 Patient encounter procedure Laura Butler DIAMOND ASSORTER.RN CHEMICAL DEPENDENCY Work Phone: [facility] Comment on above: Burning with urinati on (Primary Dx) Start: 04-02-2023 Refill Sonam gardner MD Work Phone: [facility] [place] Comment on above: Refill Request Start: 11-14-2021 End: 11-14-2021 Patient encounter procedure La Wilson DIAMOND ASSORTER.RN CHEMICAL DEPENDENCY Work Phone: [facility] Comment on above: Wellness examination (Primary Dx); Anxiety and depression; Controlled type 2 diabetes mellitus without complication, without long-term current use of insulin (HCC) Start: 11-14-2021 End: 11-14-2021 Patient encounter status La Wilson DIAMOND ASSORTER.RN CHEMICAL DEPENDENCY Work Phone: [facility] Start: 11-05-2021 Refill Sonam gardner MD Work Phone: [facility] Comment on above: Refill Request Procedures Date Procedure Procedure Detail Performing Clinician Start: 02-14-2025 Urnls dip stick/tabl et rgnt auto w/o microscopy Aubrey Jaimes DIAMOND ASSORTER.RN CHEMICAL DEPENDENCY Work Phone: Start: 01-04-2025 Plain chest X-ray Kenji Castro MD Work Phone: Start: 01-04-2025 Estimated creatinine clearance Kenji Castro MD Work Phone: Start: 12-28-2024 Radex hand minimum 3 views Shine BOOKER Work Phone: Start: 05-09-2023 Urnls dip stick/tabl et rgnt auto w/o microscopy Clover Margarette DIAMOND ASSORTER.RN CHEMICAL DEPENDENCY Work Phone: Plan of Treatment Date Care Activity Detail Author Start: 12-23-2025 Glaucoma screening Dilated Retinal E xam [facility] Start: 07-23-2025 Annual PCP Team Assistant Director Of Security ene Disease Visit Annual PCP Team Chronic Disease Visit [facility] Start: 07-23-2025 Covid-19 Vaccine () Covid-19 Vaccine () [facility] Comment on above: Postponed from 03/21 (Declined at this time) Start: 07-23-2025 Glaucoma screening Dilated Retinal E xam [facility] Start: 07-23-2025 Pneumococcal Vaccine : 50+ (1 of 2 - PCV) Pneumococcal Vaccine: 50+ (1 of 2 - PCV) [facility] Comment on above: Postponed from 05/07 (Declined at this time) Start: 07-23-2025 RSV Vaccine (1 - 1-d ose 75+ series) RSV Vaccine (1 - 1-dose 75+ series) [facility] Comment on above: Postponed from 05/07 (Declined at this time) Start: 07-23-2025 Shingrix Vaccine (1 of 2) Honeycutt grix Vaccine (1 of 2) [facility] Comment on above: Postponed from 05/07 (Declined at this time) Start: 07-23-2025 Urine microalbumin profile DTa P,Tdap,Td Vaccine (2 - Tdap) [facility] Comment on above: Postponed from 10/08 (Declined at this time) Start: 03-21-2025 Influenza vaccination C [facility] Start: 02-22-2025 End: 02-22-2025 Patient encounter procedure 02/22/2025 4:20 PM EDT Office Visit [facility] [address] [place] [address] Sonam Hernandez MD [address] [place] [address] UC f/u to make sure blood in urine is resolved. See TE 02/15/25. [facility] Comment on above: UC f/u to make sure blood in urine is resolved. See TE 02/15/25. Start: 01-17-2025 Influenza vaccination Influenza Vacc ine (#1) [facility] Comment on above: Postponed from 03/21 (Declined at this time) Start: 01-04-2025 [facility] Start: 08-07-2024 Glaucoma screening Dilated Retinal E xam [facility] Start: 07-23-2024 End: 07-23-2024 Patient encounter procedure 07/23/2024 4:20 PM EST Office Visit [facility] [address] [place] [address] Sonam Hernandez MD [address] [place] [address] [facility] [place] Comment on above: Wellness Start: 07-21-2024 Advance Directive Discussion Advance Directive Discussion [facility] Start: 06-09-2024 Annual PCP Team Assistant Director Of Security ene Disease Visit Annual PCP Team Chronic Disease Visit [facility] Start: 06-09-2024 Covid-19 Vaccine (#1) Covid-19 Vacci ne (#1) [facility] Comment on above: Postponed from 11/05 (Declined at this time) Start: 06-09-2024 Hepatitis B Vaccine (1 of 3 - Risk 3-dose series) Hepatitis B Vaccine (1 of 3 - Risk 3-dose series) [facility] Comment on above: Postponed from 05/07 (Declined at this time) Start: 06-09-2024 Pneumococcal Vaccine : 65+ (1 - PCV) Pneumococcal Vaccine: 65+ (1 - PCV) [facility] Comment on above: Postponed from 05/07 (Declined at this time) Start: 06-09-2024 RSV Vaccine (1 - 1-d ose 60+ series) RSV Vaccine (1 - 1-dose 60+ series) [facility] Comment on above: Postponed from 05/07 (Declined at this time) Start: 06-09-2024 Shingrix Vaccine (1 of 2) Honeycutt grix Vaccine (1 of 2) [facility] Comment on above: Postponed from 05/07 (Declined at this time) Start: 06-09-2024 Urine microalbumin profile DTa P,Tdap,Td Vaccine (2 - Tdap) [facility] Comment on above: Postponed from 10/08 (Declined at this time) Start: 03-21-2024 Covid-19 Vaccine ( season) Covid-19 Vaccine ( season) [facility] Start: 03-21-2024 Influenza vaccination Influenza Vacc ine (#1) [facility] Start: 01-18-2024 Influenza vaccination Influenza Vacc ine (#1) [facility] Comment on above: Postponed from 03/21 (Declined at this time) Start: 07-21-2023 Advance Directive Discussion Advance Directive Discussion [facility] Start: 03-21-2023 Influenza vaccination Influenza Vacc ine (#1) [facility] Start: 11-14-2022 ANNUAL PCP TEAM WINDSHIELD INSTALLER ENE DISEASE VISIT ANNUAL PCP TEAM CHRONIC DISEASE VISIT [facility] Start: 11-14-2022 COVID-19 VACCINE (1) COVID-19 VACCIN E (1) [facility] Comment on above: Postponed from 05/07 (Declined at this time) Start: 08-13-2022 Hepatitis C antibody , confirmatory test DILATED RETINAL EXAM [facility] Start: 07-21-2022 Advance Directive Discussion Advance Directive Discussion [facility] Start: 03-21-2022 Influenza vaccination INFLUENZ A (Season Ended) [facility] Start: 07-21-2021 ADVANCE DIRECTIVE DISCUSSION ADVANCE DIRECTIVE DISCUSSION [facility] Start: 11-29-2020 ANNUAL PCP TEAM WINDSHIELD INSTALLER ENE DISEASE VISIT ANNUAL PCP TEAM CHRONIC DISEASE VISIT [facility] Start: 2019 RSV Vaccine (1 - 1-d ose 75+ series) RSV Vaccine (1 - 1-dose 75+ series) [facility] Start: 03-31-2019 Hepatitis B screening URINE ALBUMIN:CREATININE RATIO [facility] Start: 03-31-2019 Hepatitis B surface antibody level LDL CHOLESTEROL [facility] Start: 09-28-2018 Hemoglobin A1c measurement HbA1C [facility] Start: 09-28-2018 Hemoglobin A1c/Hemoglobin.total in Blood HBA1C [facility] Start: 12-04-2017 3 comp foot exam completed DIABETIC FOOT EXAM [facility] Start: 12-04-2017 Diabetic foot examination Diabetic F oot Exam [facility] Start: 10-09-2015 Urine microalbumin profile [facility] Start: 2004 Hepatitis B Vaccine (1 of 3 - Risk 3-dose series) Hepatitis B Vaccine (1 of 3 - Risk 3-dose series) [facility] Start: 2004 RSV Vaccine (1 - 1-d ose 60+ series) RSV Vaccine (1 - 1-dose 60+ series) [facility] Start: 1994 SHINGRIX VACCINE (1 of 2) HONEYCUTT GRIX VACCINE (1 of 2) [facility] Start: 1963 Pneumococcal Vaccine : 50+ (1 of 2 - PCV) Pneumococcal Vaccine: 50+ (1 of 2 - PCV) [facility] Start: 1962 HEPATITIS C SCREENING HEPATITIS C SC REENING [facility] Start: 1950 Pneumococcal Vaccine : 65+ (1 - PCV) Pneumococcal Vaccine: 65+ (1 - PCV) [facility] Start: 1949 COVID-19 VACCINE (1) COVID-19 VACCIN E (1) [facility] Start: 1944 Covid-19 Vaccine (#1) Covid-19 Vacci ne (#1) [facility] Bacteria identified in Urine by Culture URINE CULTURE Microbiology Routine Burning with urination 05/09/2023 3:20 PM EDT [facility] Work Phone: Bacteria identified in Urine by Culture BACTERIAL CULTURE, URINE Microbiology Routine Urinary frequency 02/14/2025 1:04 PM EDT [facility] Work Phone: Evaluation of diagno stic study results [facility] Patient Education ED AFIB [facility] Work Phone: Patient referral [facility] Work Phone: Stress echocardiography [facility] Immunizations Immunization Date Immunization Notes Care Provider Hortencia alcazar 10-08-2005 diphtheria, tetanus toxoids and acellular pertussis vaccine Sonam Hernandez MD Work Phone: [facility] Payers Date Payer Category Payer Self-pay [id number] 2022 Private Health Insurance [id number] [facility] [id number] 2022-Present [address] [place] [address] Indemnity [id number] 2022 Unknown [id number] Unknown [id number] Unknown [id number] Social History Date Type Detail Facility Start: 12-31-2022 End: 01-26-2025 Tobacco smoking status NHIS Never smoked tobacco [facility] Work Phone: Start: 03-31-2018 End: 02-14-2025 Alcohol intake Current non-drinker of alcohol (finding) [facility] Start: 1945 Sex Assigned At Not on file [facility] Start: 10-28-2021 End: 11-07-2021 Exposure to SARS-CoV-2 (event) Not sure [facility] Work Phone: Start: 12-31-2022 Tobacco use and exposure Smokeless tobacco non-user [facility] Start: 12-31-2022 End: 06-09-2023 History of Social function [facility] Start: 12-31-2022 End: 06-09-2023 Tobacco use panel [facility] Adult Depression Screening Assessment [address] [facility] Start: 1945 Sex Assigned At Female [facility] Functional Status Date Assessment Result Facility 03-10-2014 Are you deaf, or do you have serious difficulty hearing No 03/10/2014 9:21 AM Tiarra Leger MA No [facility] 03-10-2014 Are you blind, or do you have serious difficulty seeing, even when wearing glasses No 03/10/2014 9:21 AM Tiarra Leger MA No [facility] 03-10-2014 Do you have serious difficulty walking or climbing stairs No 03/10/2014 9:21 AM TERRENCET Tiarra Mcdonald MA No [facility] 03-10-2014 Do you have difficul ty dressing or bathing No 03/10/2014 9:21 AM EDT Tiarra Mcdonald MA No [facility] 03-10-2014 Because of a physica l, mental, or emotional condition, do you have difficulty doing errands alone such as visiting a physician's office or shopping No 03/10/2014 9:21 AM Tiarra Leger MA [facility] Mental Status Date Assessment Result Facility 01-04-2025 Cognitive function Voice/Name [facility] Work Phone: 03-10-2014 Because of a physica l, mental, or emotional condition, do you have serious difficulty concentrating, remembering, or making decisions No 03/10/2014 9:21 AM EDT Tiarra Mcdonald MA No [facility] Clinical Notes 11-16-2010 to 02-15-2025 Telephone Encounter - Anne Eng RN - 02/15/2025 4:34 PM EDTTelephone Encounter - Anne Eng RN - 02/15/2025 4:34 PM EDTTelephone Encounter - Padmini Webb MA - 02/15/2025 3:53 PM EDT Note Date & Type Note Facility 02-15-2025 Telephone encount er Note Pt called and is notified of providers results and instructions again. Scheduled an appointment with Pt to see PCP. Anne Eng RN [facility] 02-15-2025 Miscellaneous Notes Formattin g of this note might be different from the original. Pt called and is notified of providers results and instructions again. Scheduled an appointment with Pt to see PCP. Anne Eng, RN Patient given results and verbalized understanding of instructions given. Padmini Webb MA Please contact patient let her know urine culture does not reveal UTI. If antibiotics are helping she may continue those. She needs close follow-up with PCP to ensure resolution of blood in the urine documented in this encounter [facility] 02-15-2025 Telephone encount er Note Patient given results and verbalized understanding of instructions given. Padmini Webb MA [facility] 02-15-2025 Telephone encount er Note Please contact patient let her know urine culture does not reveal UTI. If antibiotics are helping she may continue those. She needs close follow-up with PCP to ensure resolution of blood in the urine [facility] Work Phone: 02-14-2025 Note HNO ID: [id number] Author: AUBREY JAIMES APRN.RN CHEMICAL DEPENDENCY Service: ? Author Type: Nurse Practitioner Type: Progress Notes Filed: 02/14/2025 12:49 Note Text: [facility] Gomes is a 79 year old female. Patient presents with: Urinary Problem: Frequency x 4 days HPI Nontoxic-appearing female presents urgent care chief plaint possible UTI. Duration of symptoms 4 days. Associated symptoms dysuria frequency urgency. Presents today for evaluation. States history of UTIs this is similar. OTC medications none. No flank pain fever vomiting or abdominal pain. No vaginal discharge. Past medical history prescription medications allergies reviewed. Review of Systems Constitutional: Negative for chills, fatigue and fever. Gastrointestinal: Negative for abdominal distention, abdominal pain, nausea, rectal pain and vomiting. Genitourinary: Positive for dysuria, frequency and urgency. Negative for difficulty urinating, dyspareunia, flank pain, genital sores, hematuria, vaginal bleeding, vaginal discharge and vaginal pain. Objective BP 110/80 Pulse 95 Temp (!) 35.7 ?C (96.2 ?F) Resp 20 Wt 76.1 kg (167 lb 12.3 oz) SpO2 99% BMI 27.08 kg/m? Physical Exam Constitutional: Appearance: Normal appearance. HENT: Mouth/Throat: Mouth: Mucous membranes are moist. Cardiovascular: Rate and Rhythm: Normal rate. Pulmonary: Effort: Pulmonary effort is normal. Breath sounds: Normal breath sounds. Abdominal: Tenderness: There is no abdominal tenderness. There is no right CVA tenderness, left CVA tenderness, guarding or rebound. Neurological: Mental Status: She is alert. {ASSESSMENT/PLAN: 1. Urinary frequency - ICD9: 788.41, ICD10: R35.0 acute - UA DIP, URINE (POC) - BACTERIAL CULTURE, URINE Urine positive for glucose blood leukocytes. Treat for acute cystitis. Placed on Macrobid. Patient states she does had routine lab work not too long ago and kidney functions was within normal limits. I did encourage patient to check glucose at home due to glucose in urine. Red flags for prompt ER evaluation discussed. Patient was educated on supportive therapies. Patient will follow up with primary care provider as needed. Patient was instructed to immediately proceed to emergency room for any new, worsening, or symptoms lasting longer than anticipated. The patient's clinical presentation is otherwise unremarkable at this time. Based on exam and clinical finding, the patient is stable for discharge. Plan of care was discussed with patient. Patient verbalizes understanding and agrees to plan of care. This note was generated using Clerk software. It may contain errors in wording, punctuation, or spelling. Aubrey Jaimes APRN.RN CHEMICAL DEPENDENCY History and Record Review Clinical information obtained from an independent historian. History obtained from or confirmed by: parent. External record(s) reviewed: prior outpatient record. Disposition The patient was discharged. OTC Medications were advised: Procedures [facility] 02-14-2025 History of Presen t illness Narrative [facility] Gomes is a 79 year old female. Patient presents with: Urinary Problem: Frequency x 4 days HPI Nontoxic-appearing female presents urgent care chief plaint possible UTI. Duration of symptoms 4 days. Associated symptoms dysuria frequency urgency. Presents today for evaluation. States history of UTIs this is similar. OTC medications none. No flank pain fever vomiting or abdominal pain. No vaginal discharge. Past medical history prescription medications allergies reviewed. Review of Systems Constitutional: Negative for chills, fatigue and fever. Gastrointestinal: Negative for abdominal distention, abdominal pain, nausea, rectal pain and vomiting. Genitourinary: Positive for dysuria, frequency and urgency. Negative for difficulty urinating, dyspareunia, flank pain, genital sores, hematuria, vaginal bleeding, vaginal discharge and vaginal pain. Objective BP 110/80 Pulse 95 Temp (!) 35.7 C (96.2 F) Resp 20 Wt 76.1 kg (167 lb 12.3 oz) SpO2 99% BMI 27.08 kg/m Physical Exam Constitutional: Appearance: Normal appearance. HENT: Mouth/Throat: Mouth: Mucous membranes are moist. Cardiovascular: Rate and Rhythm: Normal rate. Pulmonary: Effort: Pulmonary effort is normal. Breath sounds: Normal breath sounds. Abdominal: Tenderness: There is no abdominal tenderness. There is no right CVA tenderness, left CVA tenderness, guarding or rebound. Neurological: Mental Status: She is alert. {ASSESSMENT/PLAN: 1. Urinary frequency - ICD9: 788.41, ICD10: R35.0 acute - UA DIP, URINE (POC) - BACTERIAL CULTURE, URINE Urine positive for glucose blood leukocytes. Treat for acute cystitis. Placed on Macrobid. Patient states she does had routine lab work not too long ago and kidney functions was within normal limits. I did encourage patient to check glucose at home due to glucose in urine. Red flags for prompt ER evaluation discussed. Patient was educated on supportive therapies. Patient will follow up with primary care provider as needed. Patient was instructed to immediately proceed to emergency room for any new, worsening, or symptoms lasting longer than anticipated. The patient's clinical presentation is otherwise unremarkable at this time. Based on exam and clinical finding, the patient is stable for discharge. Plan of care was discussed with patient. Patient verbalizes understanding and agrees to plan of care. This note was generated using Clerk software. It may contain errors in wording, punctuation, or spelling. Aubrey Jaimes APRN.RN CHEMICAL DEPENDENCY History and Record Review Clinical information obtained from an independent historian. History obtained from or confirmed by: parent. External record(s) reviewed: prior outpatient record. Disposition The patient was discharged. OTC Medications were advised: Procedures documented in this encounter [facility] 01-04-2025 Discharge summary [facility] 01-04-2025 Telephone encounter Note Noted Sonam Hernandez MD [facility] 01-04-2025 Miscellaneous Notes Noted Sonam Hernandez MD Tia wu from [facility] and states pt was scheduled to have cataract procedure today and was noted to have new A-Fib with RVR. Tia states pt agreeable to be evaluated at [facility] today. Kira Gilliam RN documented in this encounter [facility] 01-04-2025 Radiology Diagnostic study note [facility] Imaging Services [address] [place], [place] [address] Chest 1 View (Portable) MR#: [id number] Acct: [id number] Name: DORYS GOMES Rep #: [id number] : 1945 F 79 From: Ky Patterson MD PCP: Dr. Sonam Hernandez MD Status: RE G ER Study:Chest 1 View (Portable) Date of Exam: 01/04/25 Exam# [id number] Ordering Dr: Kenji Castro MD PROCEDURE: CHEST 1 VIEW (PORTABLE) 01/04/2025 REASON FOR EXAM: FATIGUE TECHNIQUE: Frontal view of the chest. COMPARISON: None FINDINGS: Hardware: EKG electrodes are seen. Heart: The heart size is normal. Lungs: The lungs are clear. Bones: Degenerative changes are identified within the thoracic spine. Other: RAD/Chest 1 View (Portable) IMPRESSION: No Acute Findings. Reading Location: [place] [address] CC: Dr. Kenji Castro MD; Dr. Sonam Hernandez MD ~ Senior Php Web Developer: Signed [facility] 01-04-2025 Discharge summary Note Date/Time January 04, 2025 3:30pm [facility] Medical Records Department [address] [place] [address] Emergency Department Summary 01/04/25 MR#: [id number] Acct: [id number] Name: DORYS GOMES Rep #:[id number] : 1945 79 From: Kenji Castro MD PCP: Dr. Sonam Hernandez MD Status:RE G ER Location: ED HPI History of Present Illness Chief Complaint: Palpitations Narrative Narrative: 79-year-old female, past medical history of depression and anxiety on antidepressant, presents with atrial fibrillation and fatigue. She relates history that she is felt tired and fatigued over the last month. She denies anychest pain or shortness of breath, no leg swelling, no fevers or chills, no cough, no other symptoms. She was post to have cataract surgery at the [facility] by Dr. Orozco today, but she states that her heart was doing different things. She was told that she was in atrial fibrillation and was sentto the emergency department. She denies any exacerbating or alleviating factors. Once again she states she is not having chest pain and she does not feel heart palpitations but she just been fatigued. PFSH PFS Home Medications ?Medication ?Instructions ?Recorded ?Last Taken ?Type apixaban 5 mg tablet (Eliquis) 5 mg PO BID #60 tabs Unknown Rx metoprolol tartrate 50 mg tablet 50 mg PO BID #60 tabs 01/04/25 Unknown Rx paroxetine HCl 20 mg tablet 20 mg PO DAILY 01/04/25 History Allergy/AdvReac Type Severity Reaction Status Date / Time Penicillins Allergy Swelling Verified 01/04/25 13:01 Social History Smoking Status: Never smoker ROS ROS ED ROS Narrative Review of systems positive for malaise and fatigue x 1 month. No chest pain, noshortness of breath, no leg swelling. No nausea or vomiting, no fevers or chills. No exacerbating or alleviating factors. EXAM Physical Exam Narrative Exam Narrative: Afebrile. Vital signs noted. Nontoxic-appearing. Cardiovascular examination reveals an irregularly irregular rhythm, with a normal rate. Lungs clear to auscultation bilaterally. Abdomen soft and nontender without guarding or rebound, positive bowel sounds. Neurological examination nonfocal, nonlateralizing, awake, alert, interactive. No appreciable pedal edema bilaterally. Const Vital Signs: 01/04/25 13:02 01/04/25 14:00 Temperature 97.7 F L Temperature Source Temporal Pulse Rate 120 H 104 H Respiratory Rate 18 14 Blood Pressure 152/108 H 124/78 H Blood Pressure Mean 122 93 Pulse Ox 96 98 Oxygen Delivery Method Room Air MDM MDM MDM Narrative Medical decision making narrative: Concern is for new onset atrial fibrillation. Although she was documented under20 bpm, on examination she is in the 90s. EKG was obtained and interpreted by myself independently as atrial fibrillation that is rate controlled at [address] changes. No STEMI. I reviewed her laboratory work and she hasnormal white count of 5.6, hemoglobin 13.7, hematocrit 42.2, platelet count 251. Electrolyte panel shows normal sodium of 140 with potassium 4.1, glucose elevated 227 but anion gap normal at 12. Magnesium normal at 2.1. LFTs are grossly unremarkable. TSH low at 0.096. Chest x-ray interpreted by myself independently as no acute process, no pneumonia, no pneumothorax. I reviewed the radiology report which confirms my independent interpretation. At this point in time, she is rate controlled currently with heart rate at 104 bpm. I discussed patient with Dr. Fercho Pat with cardiology. In discussion with the patient, through shared decision making, they prefer outpatient follow-up as opposed to observation or admission. Patient was given her first dose of metoprolol tartrate 50 mg here as well as Eliquis 5 mg. She is to take the metoprolol and Eliquis twice daily. She was told of the risk of increased bleeding and spontaneous hemorrhage with the use of Eliquis, and risk-benefit ratio was discussed as well. At this point in time, I do feel she can be discharged to follow-up with cardiology. She is to return with consistently elevated heart rate above 120 bpm, new or worsening symptoms including chest pain or shortness of breath. Disposition is dischargedhome in stable condition. History & Record Review Discussion w/independent historian: Patient and Family Additional record(s) reviewed:: Prior ED visit Lab Data Attestation: I reviewed the patient's lab results. Labs: Laboratory Results - last 24 hr 01/04/25 13:12 WBC 5.6 RBC 4.68 Hgb 13.7 Hct 42.2 MCV 90.2 MCH 29.3 MCHC 32.5 RDW Std Deviation 41.3 RDW Coeff of Albert 12.7 Plt Count 251 MPV 9.8 Sodium 140 Potassium 4.1 Chloride 102 Carbon Dioxide 25.9 Anion Gap 12 BUN 16 Creatinine 0.79 Estim Creat Clear Calc 59.65 Est GFR (MDRD) Non-Af 76 BUN/Creatinine Ratio 20.6 H Glucose 227 H Calcium 10.0 Magnesium 2.1 Total Bilirubin 0.49 AST 22 ALT 20 Alkaline Phosphatase 99 Total Protein 7.2 Albumin 4.4 Globulin 2.8 Albumin/Globulin Ratio 1.6 TSH 0.096 L Radiography Chest X-Ray - ED: 1 View, Read by ED Physician, Read by Radiologist and No AcuteDisease Diagnostic Testing: Clinical Impression(s) from Imaging Studies Chest X-Ray 01/04/25 13:55 IMPRESSION: No Acute Findings. Reading Location: [facility] Discharge Plan Triage Chief Complaint: Palpitations ED Provider: Kenji Castro Dx/Rx/DC Orders Clinical Impression: New onset atrial fibrillation, Fatigue Instructions: ED AFIB Prescriptions: New metoprolol tartrate 50 mg tablet 50 mg PO BID Qty: 60 0RF Eliquis 5 mg tablet 5 mg PO BID Qty: 60 0RF No Action paroxetine HCl 20 mg tablet 20 mg PO DAILY Primary Care Provider: Sonam Hernandez Referrals: Fercho Pat MD [Med Staff - Active Staff] - 3-5 Days Sonam Hernandez MD [Primary Care Provider] - Activity Restrictions/Additional Instructions: Follow-up with [facility] or the floater operator of your choice. Call theoffice for an appointment. Take medication as directed. Return to the emergency department with elevated heart rate above 120 bpm consistently, new orworsening symptoms, including chest pain or shortness of breath. With the use of an anticoagulant, you are at risk for increased bleeding or even spontaneous hemorrhage. Print Language: Botswanan Disposition Disposition: Home, Self Care What to do if you have Problems For any increased pain, shortness of breath, bleeding, nausea or vomiting, chestpain, or any unexpected problems, contact your Primary Care Provider. Call [employer] [facility] ([phone]) or report to the closest Emergency Room. Call 911 if necessary. 01/04/25 1530 <Electronically signed by Kenji Castro MD> Cosigner Signature (if applicable): CC: Dr. Sonam Hernandez MD ~ Signed [facility] Work Phone: [phone] 157-717306-17-2025 Telephone encounter Note* Telephone Encounter - Kira Gilliam RN - 01/04/2025 12:59 PM EDT Tia calling from [facility] and states pt was scheduled to have cataract procedure today and was noted to have new A-Fib with RVR. Tia states pt agreeable to be evaluated at [facility] today. Kira Gilliam RN [facility]06-10-2025 History of Present illness Narrative* Keli Morrissey, RT(R) - 12/28/2024 12:50 PM EDT Radiology Service Progress Note PATIENT NAME: Dorys Gomes DATE OF SERVICE: December 28, 2024 TIME: 12:43 PM PATIENT IDENTITY VERIFICATION COMPLETED USING TWO (2) IDENTIFIERS: Name and Date of confirmedby patient verbally. FALL SCREENING: Has the patient had 2 falls in the last year or 1 fall with injury or currently using an Ambulatory Assistive Device (Walker, Cane, Wheelchair, Crutches, etc.)? No PATIENT GENDER DATA: Assigned female at . status: : No status:NO. PATIENT RELEVANT IMPLANT DATA REVIEWED: Yes PATIENT PRESENTS WITH AN IMPLANTABLE OR ATTACHED MUSIC SUPERVISOR: No RADIOLOGY DEPARTMENT: General X-ray: Exam(s) Completed: Upper Extremity X- Ray(s): Wrist, right and Hand, right PERIPHERAL IV DATA: Not applicable SIGNED BY: ZOILA Healy) December 28, 2024 12:43 PM documented in this encounterMer[facility] Health [facility]. [facility]2025 NoteHNO ID: [id number] Author: KELI MORRISSEY RT(R) Service: ? Author Type: Technologist Type: Progress Notes Filed: 12/28/2024 13:00 Note Text: Radiology Service Progress Note PATIENT NAME: Dorys Gomes DATE OF SERVICE: December 28, 2024 TIME: 12:43 PM PATIENT IDENTITY VERIFICATION COMPLETED USING TWO (2) IDENTIFIERS: Name and Date of confirmed by patient verbally. FALL SCREENING: Has the patient had 2 falls in the last year or 1 fall with injury or currently using an Ambulatory Assistive Device (Walker, Cane, Wheelchair, Crutches, etc.)? No PATIENT GENDER DATA: Assigned female at . status: : No status: NO. PATIENT RELEVANT IMPLANT DATA REVIEWED: Yes PATIENT PRESENTS WITH AN IMPLANTABLE OR ATTACHED MUSIC SUPERVISOR: No RADIOLOGY DEPARTMENT: General X-ray: Exam(s) Completed: Upper Extremity X-Ray(s): Wrist, right and Hand, right PERIPHERAL IV DATA: Not applicable SIGNED BY: RT Monet(R) December 28, 2024 12:43 [facility]06-10-2025 NoteHNO ID: [id number] Author: SHINE TELLEZ PA Service: ? Author Type: Physician Cq Developer Type: Progress Notes Filed: 12/28/2024 13:33 Note Text: [facility] Subjective Dorys Gomes is a 79 year old female. Patient presents with: Fall: Fell on Friday and unsure how she landed, wrist pain, swelling and bruising since, LROM, increased pain in thumb area, x 4 days HPI Right Wrist Pain: - Fell onto right hand 2 days ago. - Pain localized to the radial side of the wrist. - Denies head trauma or loss of consciousness during the fall. - Reports tenderness to palpation on the radial side, less so on the ulnar side. - Denies pain with thumb movement. - Noted swelling in the wrist. - Denies numbness or paresthesia in the fingers. - Took Advil every 3-4 hours on the night of the fall for pain management. - Right-hand dominant. Review of Systems Musculoskeletal: (+) right wrist pain, (+) right hand swelling, (-) right thumb pain Neurological: (-) syncope, (-) paresthesia Objective BP 135/78 Pulse 92 Temp 36.3 ?C (97.3 ?F) Resp 20 Wt 76 kg (167 lb 8.8 oz) SpO2 98% BMI 27.04 kg/m? Physical Exam Vitals and nursing note reviewed. Constitutional: General: She is not in acute distress. Appearance: Normal appearance. She is not toxic-appearing. Musculoskeletal: Right wrist: Swelling, tenderness and bony tenderness present. No snuff box tenderness or crepitus. Decreased range of motion. Normal pulse. Right hand: Swelling present. No tenderness or bony tenderness. Normal range of motion. Normal pulse. Comments: Tenderness over radial side of right wrist. No snuffbox tenderness. Mild swelling about the wrist. Nontender ulnar side of the wrist decreased flexion extension of the wrist due to pain. Nontender hand. Diffuse swelling noted of right hand. Hand Tacker strength 5/5 normal ROM all digits right hand cap refill less than 2 seconds. Small amount of bruising and mild tenderness over the right thumb thenar eminence. Skin: General: Skin is warm and dry. Neurological: Mental Status: She is alert. {1. Right wrist pain (M25.531) - Patient experienced a fall onto the right hand two days ago, resulting in pain primarily on the radial side of the wrist. - Physical exam reveals tenderness on the radial side, mild tenderness on the ulnar side, and soft tissue swelling. No pain with thumb movement or numbness in the fingers. Patient is able to make a fist and extend fingers without pain. - X-ray of the right wrist shows no fractures or dislocations, but some evidence of arthritis. - Diagnosis is likely a sprain. - Advised elevation of the wrist on pillows, application of ice, and use of Tylenol or Motrin as needed for pain management over the next week. - Patient may continue using Advil for inflammation. - Compression wrapping is recommended to help reduce swelling. Recording using ambient orangutrans software for draft documentation of the visit was discussed with the patient/authorized tour sales representative; all questions welcomed and answered. Patient/authorized tour sales representative agreed to proceed Differential Diagnoses - Right wrist pain/injury is more likely for the following reason(s): suggested by HANDP - Right wrist fracture/dislocation is less likely for the following reason(s): no evidence on imaging Disposition The patient was [facility]. [facility] History of Present illness Narrative* Shine Tellez PA - 12/28/2024 12:38 PM EDT [facility] Subjective Dorys Gomes is a 79 year old female. Patient presents with: Fall: Fell on Friday and unsure how she landed, wrist pain, swelling and bruising since, LROM, increased pain in thumb area, x 4 days HPI Right Wrist Pain: - Fell onto right hand 2 days ago. - Pain localized to the radial side of the wrist. - Denies head trauma or loss of consciousness during the fall. - Reports tenderness to palpation on the radial side, less so on the ulnar side. - Denies pain with thumb movement. - Noted swelling in the wrist. - Denies numbness or paresthesia in the fingers. - Took Advil every 3-4 hours on the night of the fall for pain management. - Right-hand dominant. Review of Systems Musculoskeletal: (+) right wrist pain, (+) right hand swelling, (-) right thumb pain Neurological: (-) syncope, (-) paresthesia Objective BP 135/78 Pulse 92 Temp 36.3 C (97.3 F) Resp 20 Wt 76 kg (167 lb 8.8 oz) SpO2 98% BMI 27.04 kg/m Physical Exam Vitals and nursing note reviewed. Constitutional: General: She is not in acute distress. Appearance: Normal appearance. She is not toxic-appearing. Musculoskeletal: Right wrist: Swelling, tenderness and bony tenderness present. No snuff box tenderness or crepitus.Decreased range of motion. Normal pulse. Right hand: Swelling present. No tenderness or bony tenderness. Normal range of motion. Normal pulse. Comments: Tenderness over radial side of right wrist. No snuffbox tenderness. Mild swelling about the wrist. Nontender ulnar side of the wrist decreased flexion extension of the wrist due to pain. Nontender hand. Diffuse swelling noted of right hand. Hand Tacker strength 5/5 normal ROM all digits right hand cap refill less than 2 seconds. Small amount of bruising and mild tenderness over the right thumbthenar eminence. Skin: General: Skin is warm and dry. Neurological: Mental Status: She is alert. {1. Right wrist pain (M25.531) - Patient experienced a fall onto the right hand two days ago, resulting in pain primarily on the radial side of the wrist. - Physical exam reveals tenderness on the radial side, mild tenderness on the ulnar side, and soft tissue swelling. No pain with thumb movement or numbness in the fingers. Patient is able to make a fist and extend fingers without pain. - X-ray of the right wrist shows no fractures or dislocations, but some evidence of arthritis. - Diagnosis is likely a sprain. - Advised elevation of the wrist on pillows, application of ice, and use of Tylenol or Motrin as needed for pain management over the next week. - Patient may continue using Advil for inflammation. - Compression wrapping is recommended to help reduce swelling. Recording using [employer] software for draft documentation of the visit was discussed with the patient/authorized tour sales representative; all questions welcomed and answered. Patient/authorized tour sales representative agreed to proceed Differential Diagnoses - Right wrist pain/injury is more likely for the following reason(s): suggested by H&P - Right wrist fracture/dislocation is less likely for the following reason(s): no evidence on imaging Disposition The patient was discharged. Procedures documented in this encounterMer[facility] History of Present illness Narrative* Sonam Hernandez MD - 07/23/2024 4:20 PM EST Chief Complaint Patient presents with: Wellness HPI Dorys Gomes is a 79 year old female who presents here today for physical. Pt here today for a Wellness visit. Pt requesting her visits to be every two years due to cost and being healthy. Has not been to [facility] lately, generally had blood work done. She does not feel she needs to have lab work completed. No bowel, gi, or urinary issues. Cardio - Denies any chest pain, sob, or dizziness. Depression/JESUS: Stable on her current regimen of Paxil 20 mg once daily. Overall sleeps okay, but doesn't require as much sleep as she used too. Lipid: Tries to watch her diet, but admits at times she cheats especially over the Holiday's. Does do some exercise, mostly during the summer/warmer months. Not as much during the winter. Does have astationary bike. Does keep busy with cleaning her house and keeping up with house chores. No longertaking Crestor 5 mg daily. DM - A1c controlled and on no current medications. Was at her [facility] prior to visit today and got her eye's dilated. Wearing sunglasses in office visit today. Does have Macular Degeneration and also has cataracts. Follows with Dr. Orozco. Takes Vitamins. HM - Declines all vaccines. Does have a Will. Past medical history, appointments, medications, allergies reviewed. Previous Medical History PAST MEDICAL HISTORY Diagnosis Date Adjustment disorder with depressed mood 09/09/2005 ANXIETY STATE NOS 09/09/2005 DIABETES MELLITUS TYPE II UNCONTR UNCOMPL 06/16/2006 Hyperlipidemia LDL goal < 100 08/17/2012 HYPOTHYROIDISM NOS 09/01/2006 Other abnormal blood chemistry Other and unspecified hyperlipidemia Vitamin D deficiency 11/16/2010 Previous Surgical History PAST SURGICAL HISTORY Procedure Laterality Date LIG/TRNSXJ FLP TUBE ABDL/VAG APPR UNI/BI Family History FAMILY HISTORY Problem Relation Age of Onset Cancer Mother liver Heart Father Diabetes Father Patient Allergies ALLERGIES Allergen Reactions Penicillins Current Medications Current Outpatient Medications on File Prior to Visit Medication Sig PARoxetine (PAXIL) 20 mg tablet Take 1 tablet by mouth once daily. rosuvastatin (CRESTOR) 5 mg tablet Take one tablet at bedtime three times/week. Cholecalciferol, Vitamin D3, 1,000 unit cap Take 1 capsule by mouth once daily. Fish Oil-Conowingo-3 Fatty Acids 300-1,000 mg cpDR Take by mouth. 6 daily Calcium and Magnesium Carbonates ORAL per tablet Take 1 tablet by mouth. 3 tablets alpha tocopheryl acetate 400 unit ORAL capsule Take 1 capsule by mouth twice daily. No current facility-administered medications on file prior to visit. Social History Social History Tobacco Use Smoking status: Never Smokeless tobacco: Never Substance Use Topics Alcohol use: No Drug use: No EXAM: BP 116/70 (BP Site: Left Arm, BP Position: Sitting, BP Cuff Size: Regular Adult) Pulse 76 Resp 16 Wt 76.6 kg (168 lb 14 oz) BMI 27.26 kg/m General Appearance: Well appearing, alert, in no acute distress, well-hydrated, well nourished. Wearing sunglasses. Lungs: Lungs clear to auscultation. No wheezing, rhonchi, rales.. Heart: RRR without murmur, gallop, or rubs. No ectopy. Abdomen: Normal abdominal exam. Health Maintenance List Diabetic Foot Exam due on 12/04/2017 HbA1C due on 09/28/2018 Urine Albumin:Creatinine Ratio due on 03/31/2019 LDL Cholesterol due on 03/31/2019 Advance Directive Discussion Never done Influenza Vaccine(1) due on 01/17/2025 DTaP,Tdap,Td Vaccine(2 - Tdap) due on 07/23/2025 RSV Vaccine(1 - 1-dose 75+ series) due on 07/23/2025 Shingrix Vaccine(1 of 2) due on 07/23/2025 Covid-19 Vaccine(1 - 2023- season) due on 07/23/2025 Pneumococcal Vaccine: 50+(1 of 2 - PCV) due on 07/23/2025 Dilated Retinal Exam due on 07/23/2025 Annual PCP Team Chronic Disease Visit due on 07/23/2025 Bone Density Screening Addressed Colorectal Cancer Screening Discontinued Data reviewed None ASSESSMENT/PLAN: 1. Wellness examination - ICD9: V70.0, ICD10: Z00.00 (primary diagnosis) - Counseled on healthy diet and regular exercise - Discussed need and benefit for weight loss. BMI 27.26 kg/(m^2) - Follow up every two years. 2. Controlled type 2 diabetes mellitus without complication, without long-term current use of insulin (HCC) - ICD9: 250.00, ICD10: E11.9 - continue watching diet and exercise 3. Hyperlipidemia with target LDL less than 100 - ICD9: 272.4, ICD10: E78.5 - Counseled on healthy diet and regular exercise 4. Anxiety and depression - ICD9: 300.00, 311, ICD10: F41.9, F32.A - STable - Continue current medication regimen. - PAROXETINE 20 MG TABLET Discussed labs; may hold off on checking anything at this time as she is symptoms free Follow up every two years; may call in one year to refill of Paxil. I agree with the Chief Complaint, ROS, and Past Histories independently gathered by the clinical application support technician and the remaining scribed note accurately describes my personal service to the patient. Sonam Hernandez MD The documentation for this note was completed by Izabel Martinez MA acting as scribe for Sonam Hernandez MD. July 23, 2024 4:27 PM. Izabel Martinez MA documented in this encounterMer[facility] St[facility]01-[facility]-2025 NoteHNO ID: [id number] Author: SONAM HERNANDEZ MD Service: ? Author Type: Physician Type: Progress Notes Filed: 07/23/2024 16:37 Note Text: Chief Complaint Patient presents with: Wellness HPI Dorys Gomes is a 79 year old female who presents here today for physical. Pt here today for a Wellness visit. Pt requesting her visits to be every two years due to cost and being healthy. Has not been to [facility] lately, generally had blood work done. She does not feel she needs to have lab work completed. No bowel, gi, or urinary issues. Cardio - Denies any chest pain, sob, or dizziness. Depression/JESUS: Stable on her current regimen of Paxil 20 mg once daily. Overall sleeps okay, but doesn't require as much sleep as she used too. Lipid: Tries to watch her diet, but admits at times she cheats especially over the Holiday's. Does do some exercise, mostly during the summer/warmer months. Not as much during the winter. Does have a stationary bike. Does keep busy with cleaning her house and keeping up with house chores. No longer taking Crestor 5 mg daily. DM - A1c controlled and on no current medications. Was at her Eye [facility] prior to visit today and got her eye's dilated. Wearing sunglasses in office visit today. Does have Macular Degeneration and also has cataracts. Follows with Dr. Orozco. Takes Vitamins. HM - Declines all vaccines. Does have a Will. Past medical history, appointments, medications, allergies reviewed. Previous Medical History PAST MEDICAL HISTORY Diagnosis Date Adjustment disorder with depressed mood 09/09/2005 ANXIETY STATE NOS 09/09/2005 DIABETES MELLITUS TYPE II UNCONTR UNCOMPL 06/16/2006 Hyperlipidemia LDL goal < 100 08/17/2012 HYPOTHYROIDISM NOS 09/01/2006 Other abnormal blood chemistry Other and unspecified hyperlipidemia Vitamin D deficiency 11/16/2010 Previous Surgical History PAST SURGICAL HISTORY Procedure Laterality Date LIG/TRNSXJ FLP TUBE ABDL/VAG APPR UNI/BI Family History FAMILY HISTORY Problem Relation Age of Onset Cancer Mother liver Heart Father Diabetes Father Patient Allergies ALLERGIES Allergen Reactions Penicillins Current Medications Current Outpatient Medications on File Prior to Visit Medication Sig PARoxetine (PAXIL) 20 mg tablet Take 1 tablet by mouth once daily. rosuvastatin (CRESTOR) 5 mg tablet Take one tablet at bedtime three times/week. Cholecalciferol, Vitamin D3, 1,000 unit cap Take 1 capsule by mouth once daily. Fish Oil-Conowingo-3 Fatty Acids 300-1,000 mg cpDR Take by mouth. 6 daily Calcium and Magnesium Carbonates ORAL per tablet Take 1 tablet by mouth. 3 tablets alpha tocopheryl acetate 400 unit ORAL capsule Take 1 capsule by mouth twice daily. No current facility-administered medications on file prior to visit. Social History Social History Tobacco Use Smoking status: Never Smokeless tobacco: Never Substance Use Topics Alcohol use: No Drug use: No EXAM: BP 116/70 (BP Site: Left Arm, BP Position: Sitting, BP Cuff Size: Regular Adult) Pulse 76 Resp 16 Wt 76.6 kg (168 lb 14 oz) BMI 27.26 kg/m? General Appearance: Well appearing, alert, in no acute distress, well-hydrated, well nourished. Wearing sunglasses. Lungs: Lungs clear to auscultation. No wheezing, rhonchi, rales.. Heart: RRR without murmur, gallop, or rubs. No ectopy. Abdomen: Normal abdominal exam. Health Maintenance List Diabetic Foot Exam due on 12/04/2017 HbA1C due on 09/28/2018 Urine Albumin:Creatinine Ratio due on 03/31/2019 LDL Cholesterol due on 03/31/2019 Advance Directive Discussion Never done Influenza Vaccine(1) due on 01/17/2025 DTaP,Tdap,Td Vaccine(2 - Tdap) due on 07/23/2025 RSV Vaccine(1 - 1-dose 75+ series) due on 07/23/2025 Shingrix Vaccine(1 of 2) due on 07/23/2025 Covid-19 Vaccine(1 - season) due on 07/23/2025 Pneumococcal Vaccine: 50+(1 of 2 - PCV) due on 07/23/2025 Dilated Retinal Exam due on 07/23/2025 Annual PCP Team Chronic Disease Visit due on 07/23/2025 Bone Density Screening Addressed Colorectal Cancer Screening Discontinued Data reviewed None ASSESSMENT/PLAN: 1. Wellness examination - ICD9: V70.0, ICD10: Z00.00 (primary diagnosis) - Counseled on healthy diet and regular exercise - Discussed need and benefit for weight loss. BMI 27.26 kg/(m2) - Follow up every two years. 2. Controlled type 2 diabetes mellitus without complication, without long-term current use of insulin (HCC) - ICD9: 250.00, ICD10: E11.9 - continue watching diet and exercise 3. Hyperlipidemia with target LDL less than 100 - ICD9: 272.4, ICD10: E78.5 - Counseled on healthy diet and regular exercise 4. Anxiety and depression - ICD9: 300.00, 311, ICD10: F41.9, F32.A - STable - Continue current medication regimen. - PAROXETINE 20 MG TABLET Discussed labs; may hold off on checking anything at this time as she is symptoms free Follow up every two years; may call (more content not included)...[facility]12-31-20[facility] Telephone encounter Note* Telephone Encounter - Sonam Hernandez MD - 07/20/2024 10:24 AM EST OK to refill as ordered Sonam Hernandez MD [facility]12-31-2024 Miscellaneous Notes* Telephone Encounter - Sonam Hernandez MD - 07/20/2024 10:24 AM EST OK to refill as ordered Sonam Hernandez MD * Telephone Encounter - Orly Vargas RN - 07/20/2024 10:13 AM EST The patient has been identified by name and date of : Yes Caregiver verified no other encounters exist for this prescription request: Yes Caregiver confirmed with patient/requestor that no other refills are due, in the near future, with this provider at this time: Yes The last office visit in the department: 06/09/2023 Does the patient have a future office visit with this provider/department: Yes 07/23/2024 Requested Prescriptions Pending Prescriptions Disp Refills PARoxetine (PAXIL) 20 mg tablet 90 tablet 3 Sig: Take 1 tablet by mouth once daily. Orly Vargas RN July 20, 2024 10:15 AM documented in this encounterMer[facility]12-31-2024 Telephone encounter Note * Telephone Encounter - Orly Vargas RN - 07/20/2024 10:13 AM EST The patient has been identified by name and date of : Yes Caregiver verified no other encounters exist for this prescription request: Yes Caregiver confirmed with patient/requestor that no other refills are due, in the near future, with this provider at this time: Yes The last office visit in the department: 06/09/2023 Does the patient have a future office visit with this provider/department: Yes 07/23/2024 Requested Prescriptions Pending Prescriptions Disp Refills PARoxetine (PAXIL) 20 mg tablet 90 tablet 3 Sig: Take 1 tablet by mouth once daily. Orly Vargas RN July 20, 2024 10:[address] [facility]11-20-2023 History of Present illness Narrative* Sonam Hernandez MD - 06/09/2023 12:00 PM EST Chief Complaint Follow up HPI Dorys Gomes is a 78 year old female who presents here today for annual follow up with 6 children, 26 grand children, and 14 great grand children. Former pt of Dr. Dejuan Christianson. Saw La Wilson a year ago. Follows with Dr. Orozco at [facility]. Declined all vaccines. Mini Co/5. Did not number clock correctly or set time correctly. No bowel, Gi, or urinary issues. Hx of UTIs. No chest pains, dizziness, or SOB. Lipid & DM: Never started taking Crestor 5 mg. Not taking any diabetic medications. Follows with Dr. Orozco with [facility]. 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 Tries to watch diet. She does stay pretty active. She checks her BS at home and states her sugars have been ok, have always been ok so far. Depression: Stable with Paxil 20 mg daily, no side effects. She wonders if she can replace the Paxil with an OTC supplement called Mastermind. Pt feels that the Paxil works well, keeps her evened out. She has been taking Paxil for a number years. She would like to stay on the Paxil 20 mg dosage and take the Supplement along with it. She takes the Paxil for depression. She lost a baby 40 years ago and her moods were up and down which is why she was started on Paxil. She is afraid to get off the medication and afraid of any terminal block assembler side effects it could cause. Past medical history, appointments, medications, allergies reviewed. Previous Medical History PAST MEDICAL HISTORY Diagnosis Date Adjustment disorder with depressed mood 09/09/2005 ANXIETY STATE NOS 09/09/2005 DIABETES MELLITUS TYPE II UNCONTR UNCOMPL 06/16/2006 Hyperlipidemia LDL goal < 100 08/17/2012 HYPOTHYROIDISM NOS 09/01/2006 Other abnormal blood chemistry Other and unspecified hyperlipidemia Vitamin D deficiency 11/16/2010 Previous Surgical History PAST SURGICAL HISTORY Procedure Laterality Date LIG/TRNSXJ FLP TUBE ABDL/VAG APPR UNI/BI Family History FAMILY HISTORY Problem Relation Age of Onset Cancer Mother liver Heart Father Diabetes Father Patient Allergies ALLERGIES Allergen Reactions Penicillins Current Medications Current Outpatient Medications on File Prior to Visit Medication Sig PARoxetine (PAXIL) 20 mg tablet Take 1 tablet by mouth once daily. rosuvastatin (CRESTOR) 5 mg tablet Take one tablet at bedtime three times/week. (Patient not taking: Reported on 12/31/2022) Cholecalciferol, Vitamin D3, 1,000 unit cap Take 1 capsule by mouth once daily. Fish Oil-Conowingo-3 Fatty Acids 300-1,000 mg cpDR Take by mouth. 6 daily Calcium and Magnesium Carbonates ORAL per tablet Take 1 tablet by mouth. 3 tablets alpha tocopheryl acetate 400 unit ORAL capsule Take 1 capsule by mouth twice daily. No current facility-administered medications on file prior to visit. Social History Social History Tobacco Use Smoking status: Never Smokeless tobacco: Never Substance Use Topics Alcohol use: No Drug use: No EXAM: BP 110/68 Pulse 84 Resp 16 Ht 167.6 cm (5' 6) Wt 72.9 kg (160 lb 11.2 oz) BMI 25.94 kg/m General Appearance: Well appearing, alert, in no acute distress, well-hydrated, well nourished.. Lungs: Lungs clear to auscultation. No wheezing, rhonchi, rales.. Heart: RRR without murmur, gallop, or rubs. No ectopy. Health Maintenance List Covid-19 Vaccine(1) Never done Pneumococcal Vaccine: 65+(1 - PCV) Never done Shingrix Vaccine(1 of 2) Never done Hepatitis B Vaccine(1 of 3 - Risk 3-dose series) Never done RSV Vaccine(1 - 1-dose 60+ series) Never done DTaP,Tdap,Td Vaccine(2 - Tdap) due on 10/09/2015 Diabetic Foot Exam due on 12/04/2017 HbA1C due on 09/28/2018 Urine Albumin:Creatinine Ratio due on 03/31/2019 LDL Cholesterol due on 03/31/2019 Advance Directive Discussion Never done Dilated Retinal Exam due on 08/13/2022 Annual PCP Team Chronic Disease Visit due on 11/14/2022 Influenza Vaccine(1) Never done Bone Density Screening Addressed Colorectal Cancer Screening Discontinued Data reviewed None ASSESSMENT/PLAN: 1. Anxiety and depression - ICD9: 300.00, 311, ICD10: F41.9, F32.A (primary diagnosis) Continue current medications. Discussed cutting down on dose if she would like to at some point in the future - PAROXETINE 20 MG TABLET 2. Controlled type 2 diabetes mellitus without complication, without long-term current use of insulin (HCC) - ICD9: 250.00, ICD10: E11.9 Blood sugars OK by patient reprot 3. Hyperlipidemia with target LDL less than 100 - ICD9: 272.4, ICD10: E78.5 Lifestyle Follow up in 1 year I agree with the Chief Complaint, ROS, and Past Histories independently gathered by the clinical application support technician and the remaining scribed note accurately describes my personal service to the patient. Medical Decision Making: Problems: Low: Stable chronic illness Risk: Moderate: Drug management Medical Decision Making Level: 3 - Low Sonam Hernandez MD The documentation for this note was completed by Tiarra Mcdonald Ma acting as scribe for Sonam Hernandez MD. June 09, 2023 12:15 PM. Tiarra Mcdonald Ma documented in this encounterMer[facility] Health [facility]10[facility]22-2023 Miscellaneous Notes* Telephone Encounter - Padmini Webb - 05/11/2023 8:22 AM EDT Left detailed message on a secured voicemail. Padmini Webb * Telephone Encounter - Neli Bright PA-C - 05/10/2023 3:16 PM EDT Please call patient and let know their urine culture did not show an infection. if antibiotics are helping finish those, otherwise follow up with pcp with further symptoms and for blood in urine. documented in this encounterMercy Health St. [facility]10-20-2023 Instructions* Patient Instructions* Laura Butler APRN.PRAVIN - 05/09/2023 1:57 PM EDT Images from the original note were not included. Urinary Problem-When to Seek Help? Symptoms of a urinary problem may lead to a bladder infection. Women are at greater risk of a urinary tract infection than are men. Most urinary tract infections in women are caused by bacteria and involve the lower urinary tract including the bladder and urethra. Symptoms: Pain or burning when passing urine, urgency, frequency, blood in the urine, difficult emptying your bladder, and lower abdominal fullness or pressure. Common Causes: Sexual intercourse, menopause, constipation, uncontrolled diabetes, dehydration and feminine products such as tampons, and kidney stones. When to Get Help: Seek medical attention if you get frequent bladder infections, urinary concerns such as leakage, blood in the urine or frequent need to urinate. You may be recommended to get help from a specialist, such as a urologist. Diagnosis & Treatment: Lab testing may include: urinalysis, and urine culture that can be collected in the lab or walk-in clinic. Most bladder infections can easily be treated. A physician, nurse practitioner or physician ambulance assistant may treat with a short course of an antibiotic. Delaying treatment can lead to worsening symptoms, like a kidney infection. Self-Care: Avoid a full bladder, bubble baths, bath oils, food and beverages that may irritate the bladder such as caffeine. Avoid spermicide foam and diaphragms Void before and after sexual intercourse Wipe front to back after using the bathroom. Stay hydrated Stop Smoking Follow-up Care: Follow up testing is not needed in healthy young women if symptoms resolve. documented in this encounterMercy Health St. [facility]10-20-2023 History of Present illness Narrative* Laura Butler APRN.CNP - 05/09/2023 1:50 PM EDT This note was created using [email or web address]. Subjective Dorys Gomes is a 78 year old female. 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 Denies fever or chills The history is provided by the patient. No certified financial planner was used. UTI This is a new problem. The current episode started more than 2 days ago. The problem occurs every urination. The problem has not changed since onset.The quality of the pain is described as burning. The pain is at a severity of 5/10. The pain is mild. There has been no fever. There is No history of p yelonephritis. Associated symptoms include frequency and urgency. Pertinent negatives include no chills, no sweats, no nausea, no vomiting, no discharge, no hematuria, no hesitancy, no possible and no flank pain. She has tried nothing for the symptoms. Her past medical history does not include kidney stones, single kidney, urological procedure, recurrent UTIs, urinary stasis or catheterization. PAST MEDICAL HISTORY Diagnosis Date Adjustment disorder with depressed mood 09/09/2005 ANXIETY STATE NOS 09/09/2005 DIABETES MELLITUS TYPE II UNCONTR UNCOMPL 06/16/2006 Hyperlipidemia LDL goal < 100 08/17/2012 HYPOTHYROIDISM NOS 09/01/2006 Other abnormal blood chemistry Other and unspecified hyperlipidemia Vitamin D deficiency 11/16/2010 PAST SURGICAL HISTORY Procedure Laterality Date LIG/TRNSXJ FLP TUBE ABDL/VAG APPR UNI/BI ALLERGIES Penicillins MEDICATIONS PARoxetine (PAXIL) 20 mg tablet Take 1 tablet by mouth once daily. Cholecalciferol, Vitamin D3, 1,000 unit cap Take 1 capsule by mouth once daily. Fish Oil-Conowingo-3 Fatty Acids 300-1,000 mg cpDR Take by mouth. 6 daily Calcium and Magnesium Carbonates ORAL per tablet Take 1 tablet by mouth. 3 tablets alpha tocopheryl acetate 400 unit ORAL capsule Take 1 capsule by mouth twice daily. nitrofurantoin monohydrate and macrocrystal (MACROBID) 100 mg capsule Take 1 capsule by mouth two times a day for 5 days. rosuvastatin (CRESTOR) 5 mg tablet Take one tablet at bedtime three times/week. (Patient not taking: Reported on 12/31/2022) FAMILY HISTORY Problem Relation Age of Onset Cancer Mother liver Heart Father Diabetes Father Social History Tobacco Use Smoking status: Never Smokeless tobacco: Never Substance Use Topics Alcohol use: No Drug use: No Review of Systems Constitutional: Negative for chills. Eyes: Negative for photophobia, pain, discharge, redness and itching. Respiratory: Negative for apnea, cough, choking and chest tightness. Cardiovascular: Negative for chest pain, palpitations and leg swelling. Gastrointestinal: Negative for abdominal pain, diarrhea, nausea and vomiting. Genitourinary: Positive for dysuria, frequency and urgency. Negative for flank pain, hematuria and hesitancy. Musculoskeletal: Negative for arthralgias, back pain and gait problem. Skin: Negative for color change, pallor and rash. Allergic/Immunologic: Negative for environmental allergies, food allergies and immunocompromised state. Neurological: Negative for dizziness, facial asymmetry, light-headedness and headaches. Hematological: Negative for adenopathy. Does not bruise/bleed easily. Psychiatric/Behavioral: Negative for agitation and behavioral problems. Objective BP 123/83 Pulse 97 Temp 36.6 C (97.8 F) Resp 18 Wt 74.4 kg (164 lb) SpO2 98% BMI 25.69 kg/m Physical Exam Vitals and nursing note reviewed. Constitutional: General: She is not in acute distress. Appearance: Normal appearance. She is normal weight. She is not ill-appearing, toxic-appearing or diaphoretic. HENT: Head: Normocephalic and atraumatic. Right Ear: Ear canal and external ear normal. Left Ear: Ear canal and external ear normal. Nose: Nose normal. No congestion or rhinorrhea. Mouth/Throat: Mouth: Mucous membranes are moist. Pharynx: No oropharyngeal exudate or posterior oropharyngeal erythema. Eyes: General: Right eye: No discharge. Left eye: No discharge. Extraocular Movements: Extraocular movements intact. Conjunctiva/sclera: Conjunctivae normal. Pupils: Pupils are equal, round, and reactive to light. Cardiovascular: Rate and Rhythm: Normal rate and regular rhythm. Pulses: Normal pulses. Heart sounds: Normal heart sounds. No murmur heard. No friction rub. Pulmonary: Effort: Pulmonary effort is normal. No respiratory distress. Breath sounds: Normal breath sounds. No stridor. No wheezing, rhonchi or rales. Chest: Chest wall: No tenderness. Abdominal: General: Abdomen is flat. There is no distension. Palpations: Abdomen is soft. There is no mass. Tenderness: There is no abdominal tenderness. There is no right CVA tenderness, left CVA tenderness, guarding or rebound. Hernia: No hernia is present. Musculoskeletal: General: No swelling, tenderness, deformity or signs of injury. Normal range of motion. Cervical back: Normal range of motion and neck supple. No rigidity. Right lower leg: No edema. Left lower leg: No edema. Lymphadenopathy: Cervical: No cervical adenopathy. Skin: General: Skin is warm and dry. Capillary Refill: Capillary refill takes less than 2 seconds. Coloration: Skin is not jaundiced or pale. Findings: No bruising, erythema, lesion or rash. Neurological: General: No focal deficit present. Mental Status: She is alert and oriented to person, place, and time. Cranial Nerves: No cranial nerve deficit. Sensory: No sensory deficit. Motor: No weakness. Coordination: Coordination normal. Gait: Gait normal. Psychiatric: Mood and Affect: Mood normal. Behavior: Behavior normal. Thought Content: Thought content normal. Judgment: Judgment normal. Assessment and Plan ASSESSMENT/PLAN: 1. Burning with urination - ICD9: 788.1, ICD10: R30.0 acute - UA positive for miley esterase, hematuria, and proteinuria - Send urine for culture - Begin treatment with Macrobid 100 mg BID for 5 days - Patient education for prevention given - UA DIP, URINE (POC) - URINE CULTURE Laura Butler APRN.PRAVIN documented in this encounterMercy Health St. [facility]09-13-2023 Miscellaneous Notes* Telephone Encounter - La Wilson APRN.CNP - 04/02/2023 11:08 AM EDT The following approved medication requests have been transmitted electronically. Requested Prescriptions Pending Prescriptions Disp Refills PARoxetine (PAXIL) 20 mg tablet 90 tablet 0 Sig: Take 1 tablet by mouth once daily. La Wilson APRN.PRAVIN * Telephone Encounter - Ara Rodriguez LPN - 04/02/2023 10:09 AM EDT Patient has been identified by name and date of : Yes Patient requesting a call when RX is approved and sent to the pharmacy. Please call patient at: [phone] Last refill 11/14/21 Qty: 90 with 3 refills [facility] 11/14/21 NOV 06/09/23 Ara Rodriguez LPN * Telephone Encounter - Nimisha Narayanna - 04/02/2023 9:58 AM EDT Pharmacy verified in [facility] Patient has been identified by name and date of : Yes Patient requesting a call when RX is approved and sent to the pharmacy. Please call patient at: [phone] Patient phones for refill(s): Requested Prescriptions Pending Prescriptions Disp Refills PARoxetine (PAXIL) 20 mg tablet 90 tablet 3 Sig: Take 1 tablet by mouth once daily. Date of last office visit : Visit date not found Date of next office visit : Visit date not found Last 2 Encounter Wt Readings: Date: Wt: 12/31/2022 73.1 kg (161 lb 3.2 oz) 11/14/2021 72.1 kg (159 lb) Not applicable Please advise. Nimisha Ramírez documented in this encounterMercy Health St. [facility]04-27-2022 Instructions* Patient Instructions* La Wilson APRN.CNP - 11/14/2021 10:44 AM EDT 1.) Have copies lab work from [place] brought into office in The future. 2.) Continue to take all medication as prescribed. 3.) Work on eating diet with lean cuts of meat, increasing veggies. 4.) Due to Tdap. 5.) Follow up in 1 year or sooner as needed. Health Promotion: - Eat healthy go to [employer] to get started - Have a yearly physical - Mammogram yearly after age 40 - Get at least 30 minutes of physical activity daily - Get at least 7 to 8 hours of sleep each night - Reach and maintain a healthy weight - Get help to quit or don't start smoking - Limit alcohol use to one drink or less - Do not use illegal drugs or misuse prescription drugs - Wear a helmet when riding a bike and wear protective gear for sports - Wear a seatbelt in cars and not text and drive - Wear sunscreen documented in this encounterMercy Health St. [facility]04-27-2022 History of Present illness Narrative* La Wilson APRN.CNP - 11/14/2021 10:40 AM EDT This is a 76 year old female who presents today with: Patient presents with: Establish Care HISTORY OF PRESENT ILLNESS: Dorys Gomes is a 76 year old female. Patient presents with: Establish Care Here in the office to establish care, PCP (Dr. Christianson) retired. Diet: Eating a well balanced diet. Exercise: Very active daily. Vision: Had exam, wears glasses. Dental: Due for exam, no difficulties. Sleep: 5-6 hours per night. Mood: Taking Paxil 20 mg daily for mood, effective. Goes to [facility] [place] [facility] [place] with [facility] Provider, every 3 months. Refers that labs were normal with this provider. DM: Currently not taking medication. Managed with diet. Lipids: Not taking Crestor. Mammogram: Denied wanting. Pap: no longer getting completed. Colonoscopy: Denies wanting. Vaccines: Denied wanting all vaccines PAST MEDICAL HISTORY: PAST MEDICAL HISTORY Diagnosis Date Adjustment disorder with depressed mood 09/09/2005 ANXIETY STATE NOS 09/09/2005 DIABETES MELLITUS TYPE II UNCONTR UNCOMPL 06/16/2006 Hyperlipidemia LDL goal < 100 08/17/2012 HYPOTHYROIDISM NOS 09/01/2006 Other abnormal blood chemistry Other and unspecified hyperlipidemia Vitamin D deficiency 11/16/2010 PAST SURGICAL HISTORY Procedure Laterality Date LIGATE FALLOPIAN TUBE ALLERGIES Penicillins MEDICATIONS Current Outpatient Medications Medication Sig PARoxetine (PAXIL) 20 mg tablet Take 1 tablet by mouth once daily. rosuvastatin (CRESTOR) 5 mg tablet Take one tablet at bedtime three times/week. Cholecalciferol, Vitamin D3, 1,000 unit cap Take 1 capsule by mouth once daily. Fish Oil-Conowingo-3 Fatty Acids (FISH OIL OMEGA 3-6-9) 300-1,000 mg ORAL CpDR Take by mouth. 6 daily Calcium and Magnesium Carbonates ORAL per tablet Take 1 tablet by mouth. 3 tablets alpha tocopheryl acetate 400 unit ORAL capsule Take 1 capsule by mouth twice daily. No current facility-administered medications for this visit. FAMILY HISTORY Problem Relation Age of Onset Cancer Mother liver Heart Father Diabetes Father Social History Tobacco Use Smoking status: Never Smoker Smokeless tobacco: Never Used Substance Use Topics Alcohol use: No Drug use: No REVIEW OF SYSTEMS GENERAL: No weight loss, malaise or fevers/chills HEENT: Negative for frequent or significant headaches, No changes in hearing or vision. NECK: Negative for lumps, goiter, pain and significant neck swelling RESPIRATORY: Negative for cough, hemoptysis, wheezing, dyspnea or shortness of breath CARDIOVASCULAR: Negative for chest pain, leg swelling, orthopnea, or palpitations GI: No nausea, vomiting, or diarrhea/constipation. No hematochezia/melena. No heartburn or reflux symptoms. : No history of dysuria, frequency or incontinence MUSCULOSKELETAL: Negative for joint pain or swelling. SKIN: Negative for lesions, rash, and itching ENDOCRINE: Negative for cold or heat intolerance, polyuria, polydipsia and goiter NEURO: No history of headaches, syncope, paralysis, seizures or tremors MOOD: Negative for depression, anxiety, or suicidal ideation. EXAM: BP 136/72 Pulse 65 Resp 14 Ht 170.2 cm (5' 7) Wt 72.1 kg (159 lb) SpO2 97% BMI 24.90 kg/m PHYSICAL EXAM: General Appearance: Well appearing, alert, in no acute distress, well-hydrated, well nourished. Skin: Skin color, texture, turgor normal, no suspicious rashes or lesions. Head: Normocephalic, no masses, lesions, tenderness or abnormalities. Eyes: Anicteric sclera. Extraocular movements are intact. Neck: Supple, no adenopathy; thyroid symmetric, normal size, no bruits. Lungs: Lungs clear to auscultation. No wheezing, rhonchi, rales. Heart: RRR without murmur, gallop, or rubs. No ectopy. Abdomen: Normal abdominal exam, Abdomen soft, non-tender. Bowel sounds normal. No masses, organomegaly, Negative CVA tenderness. Extremities: No deformities, edema, skin discoloration, clubbing or cyanosis. Good capillary refill. Musculoskeletal: No joint swelling, deformity, or tenderness. Peripheral Pulses: Normal, Capillary refill <2secs, strong peripheral pulses, Pulses palpable. Neurologic: Gait normal. Reflexes normal and symmetric. Sensation grossly intact. ASSESSMENT/PLAN: 1. Wellness examination - ICD9: V70.0, ICD10: Z00.00 (primary diagnosis) - Counseled on healthy diet and regular exercise - Calcium intake with supplements or by diet of 1000 mg/day for under 50, 1200- 1500 mg/day for 50+ - Depression screening tool completed and reviewed with patient. Based on score and interview, patient is already diagnosed with depression and recommended no further intervention at this time. - Get lab results from other provider - Follow up for annual exam in one year 2. Anxiety and depression - ICD9: 300.00, 311, ICD10: F41.9, F32.A - Continue current medication. - PAROXETINE 20 MG TABLET 3. Controlled type 2 diabetes mellitus without complication, without long-term current use of insulin (HCC) - ICD9: 250.00, ICD10: E11.9 The patient is new to me. - Continue to eat a low carb diet. Follow-up in 1 year or sooner as needed. Discussed treatment plan and patient voices understanding. Patient's questions answered appropriately. Medications and potential side effects were discussed and patient voices understanding. La Wilson APRN.PRAVIN This note was partially generated using Clerk voice recognition system. Note was reviewed for accuracy. There may be minor misspellings or grammar miscues with Clerk voice recognition. documented in this encounterMercy Health St. [facility]04-18-2022 Miscellaneous Notes* Telephone Encounter - Tiarra Mcdonald Ma - 11/05/2021 3:38 PM EDT The following approved medication requests have been transmitted electronically. Signed Prescriptions Disp Refills PARoxetine (PAXIL) 20 mg tablet 90 tablet 0 Sig: Take 1 tablet by mouth once daily. ERIN: No Authorizing Provider: SONAM HERNANDEZ Ma * Telephone Encounter - Sonam Hernandez MD - 11/05/2021 3:23 PM EDT OK to refill as ordered Sonam Hernandez MD * Telephone Encounter - Carolina Castañeda [facility] - 11/05/2021 2:46 PM EDT Patient has been identified by name and date of : Yes Last office visit in this department: 03/31/2018 RX INSTRUCTIONS: Patient aware RX will be sent to pharmacy. No need to notify patient. Patient phones requesting refills as follows: No medications selected for refill. Please review and advise. Carolina Castañeda Pss Patient is requesting to schedule appointment to [facility] from Dr Christianson to Dr Hernandez also needs a refill on [facility]. Just Waiting for the self pay referral to be approved to schedule appointment. Thank you documented in this encounterSabrina [place] [id number] History of Past illness Narrative* Problem Noted Date Resolved Date Vitamin D deficiency 11/16/2010 12/04/2016 Hypothyroidism 09/01/2006 09/21/2020 DIABETES MELLITUS TYPE II UNCONTR UNCOMPL 200505/25/2015 documented as of this encounter (statuses as of 11/05/2021) [address]29-2011 History of Past illness Narrative* Problem Noted Date Resolved Date Vitamin D deficiency 11/16/2010 12/04/2016 Hypothyroidism 09/01/2006 09/21/2020 DIABETES MELLITUS TYPE II UNCONTR UNCOMPL 200505/25/2015 documented as of this encounter (statuses as of 11/14/2021) [address]29-2011 History of Past illness Narrative* Problem Noted Date Diagnosed Date Resolved Date Vitamin D deficiency 11/16/2010 017 Hypothyroidism 09/01/2006 09/21/2020 DIABETES MELLITUS TYPE II UNCONTR UNCOMPL 06/16/2006 05/25/2015 documented as of this encounter (statuses as of 05/01/2023) [address]29-2011 History of Past illness Narrative* Problem Noted Date Diagnosed Date Resolved Date Vitamin D deficiency 11/16/2010 017 Hypothyroidism 09/01/2006 09/21/2020 DIABETES MELLITUS TYPE II UNCONTR UNCOMPL 06/16/2006 05/25/2015 documented as of this encounter (statuses as of 05/09/2023) [address]29-2011 History of Past illness Narrative* Problem Noted Date Diagnosed Date Resolved Date Vitamin D deficiency 11/16/2010 017 Hypothyroidism 09/01/2006 09/21/2020 DIABETES MELLITUS TYPE II UNCONTR UNCOMPL 06/16/2006 05/25/2015 documented as of this encounter (statuses as of 05/11/2023) [facility] History of Past illness Narrative* Problem Noted Date Diagnosed Date Resolved Date Vitamin D deficiency 11/16/2010 017 Hypothyroidism 09/01/2006 09/21/2020 DIABETES MELLITUS TYPE II UNCONTR UNCOMPL 06/16/2006 05/25/2015 documented as of this encounter (statuses as of 06/09/2023) [facility]* Diagnosis Wellness examination- Primary Anxiety and depression Dysthymic disorder Controlled type 2 diabetes mellitus without complication, without long-term current use of insulin (HCC) documented in this encounter [facility]Eval[facility]* Diagnosis Anxiety and depression Dysthymic disorder [facility] [facility]* Diagnosis Burning with urination- Primary Dysuria [facility] Diagnosis Anxiety and depression- Primary Dysthymic disorder Controlled type 2 diabetes mellitus without complication, without long-term current use of insulin (HCC) Hyperlipidemia with target LDL less than 100 Other and unspecified hyperlipidemia documented [facility]* Diagnosis Anxiety and depression Dysthymic disorder documented [facility] this [facility]* Diagnosis Wellness examination- Primary Controlled type 2 diabetes mellitus without complication, without long-term current use of insulin (HCC) Hyperlipidemia with target LDL less than 100 Other and unspecified hyperlipidemia Anxiety and depression Dysthymic disorder documented in this [facility]* Diagnosis Right wrist pain- Primary Pain in joint, forearm Right wrist pain Pain in joint, forearm documented [facility] this [facility]* Diagnosis Right wrist pain Pain in joint, forearm documented in this [facility] noteNo assessment information availableWMary Rut[facility] Work Phone: Evaluation note* Diagnosis Onset Date Resolution Status Admit Date Atrial fibrillation acute January 26, 2025 9:14am [facility] Work Phone: Evaluation note* Diagnosis Urinary frequency- Primary [facility] Additional Instructions Follow-up with [facility] or the floater operator of your choice. Call the office for an appointment. Take medication as directed. Return to the emergency department with elevated heart rate above 120 bpm consistently, new or worsening symptoms, including chest pain or shortness of breath. With the use of an anticoagulant, you are at risk for increased bleeding or even spontaneous hemorrhage.[facility] Work Phone: Reczlx for referral (narrative)No reason for referral information availableWMary Rutan Hospital Work Phone: Reason for visit Narrative* Diagnostic Procedure Only (Urgent) - Pending Review Specialty Diagnoses / Procedures Referred By Contac t Referred To Contact XR IMAGING Diagnoses Right wrist pain Procedures XR WRIST INJURY 4V PA/LAT/OBL/SCAPH RIGHT RADEX WRIST COMPLETE MINIMUM 3 VIEWS [employer], [facility] [address] [place] [address] Phone: tel: fax: [place] [id number] Referral ID Status Reason Start Date Expiration Date Visits Requested Visits Authorized [id number] Pending Review Auto-Generat ed Referral 12/28/2024 01/27/2026 [address] [facility] Chief Complaint and Reason for Visit Chief Complaint Admit Date palpitations January 04, 2025 1:00 pm Chief Complaint Admit Date palpitations January 04, 2025 1:00 pm S/P [facility] 01/05 ([facility] ER) January 26, 2025 9: 14am Reason for Visit Admit Date Atrial fibrillation January 26, 2025 9:14a m Advance Directives No Advanced Directives Records Found Advance Directive Response Recorded Date/ Time Do you have a Healthcare Power of Art History Instructor? No January 04, 2025 1:24pm Family History No Family History Records Found Relationship Condition Age at Onset Recorded Date/T frannie mother Malignant neoplasm Unknown father Diabetes mellitus Unknown Cardiac disease Unknown Summary Purpose Additional Source Comments Source Comments (unrecognize d section and content) In the event this informatio n is protected by the Federal Confidentiality of Alcohol and Drug Abuse Patient Records regulations: The Federal rules restrict any use of the information to criminally investigate or prosecute any alcohol or drug abuse patient.[facility] the event this information is protected by the Federal Confidentiality of Alcohol and Drug Abuse Patient Records regulations: The Federal rules restrict any use of the information to criminally investigate or prosecute any alcohol or drug abuse patient.[facility] Center[facility] the event this information is protected by the Federal Confidentiality of Alcohol and Drug Abuse Patient Records regulations: The Federal rules restrict any use of the information to criminally investigate or prosecute any alcohol or drug abuse patient.[facility] Center[facility] the event this information is protected by the Federal Confidentiality of Alcohol and Drug Abuse Patient Records regulations: The Federal rules restrict any use of the information to criminally investigate or prosecute any alcohol or drug abuse patient.[facility] Center[facility] the event this information is protected by the Federal Confidentiality of Alcohol and Drug Abuse Patient Records regulations: The Federal rules restrict any use of the information to criminally investigate or prosecute any alcohol or drug abuse patient.[facility] CenterIn the event this information is protected by the Federal Confidentiality of Alcohol and Drug Abuse Patient Records regulations: The Federal rules restrict any use of the information to criminally investigate or prosecute any alcohol or drug abuse patient.[facility] CenterIn the event this information is protected by the Federal Confidentiality of Alcohol and Drug Abuse Patient Records regulations: The Federal rules restrict any use of the information to criminally investigate or prosecute any alcohol or drug abuse patient.[facility] CenterIn the event this information is protected by the Federal Confidentiality of Alcohol and Drug Abuse Patient Records regulations: The Federal rules restrict any use of the information to criminally investigate or prosecute any alcohol or drug abuse patient.[facility] CenterIn the event this information is protected by the Federal Confidentiality of Alcohol and Drug Abuse Patient Records regulations: The Federal rules restrict any use of the information to criminally investigate or prosecute any alcohol or drug abuse patient.[facility] CenterIn the event this information is protected by the Federal Confidentiality of Alcohol and Drug Abuse Patient Records regulations: The Federal rules restrict any use of the information to criminally investigate or prosecute any alcohol or drug abuse patient.[facility] CenterIn the event this information is protected by the Federal Confidentiality of Alcohol and Drug Abuse Patient Records regulations: The Federal rules restrict any use of the information to criminally investigate or prosecute any alcohol or drug abuse patient.[facility] CenterIn the event this information is protected by the Federal Confidentiality of Alcohol and Drug Abuse Patient Records regulations: The Federal rules restrict any use of the information to criminally investigate or prosecute any alcohol or drug abuse patient.[facility] CenterIn the event this information is protected by the Federal Confidentiality of Alcohol and Drug Abuse Patient Records regulations: The Federal rules restrict any use of the information to criminally investigate or prosecute any alcohol or drug abuse patient.[facility] Reason for Visit (unrecogniz ed section and content) Reason Onset Date Comments Refill Request 11/05/2021 Reason Comments Establish Care Specialty Diagnoses / Procedures Referred By Syd t Referred To Contact FAMILY MEDICINE Diagnoses (AHSAN from Dr Christianson) establish and med check Procedures (AHSAN from Dr Christianson) establish and med check Sonam Hernandez MD [address] [place] [address] [facility] [address] [place] [address] Referral ID Status Reason Start Date Expiration Date Visits Requested Visits Authorized [id number] Authorized Financial Clearance Required - Self Pay Patient Cleared - Qualified 100% FAS 11/05/2021 02/03/2022 99 99 Reason Onset Date Comments Refill Request 04/02/2023 Reason Comments Urinary Problem Burning urgency with urination x 1 week Reason Comments Results Reason Comments Physical Reason Onset Date Comments Refill Request 07/20/2024 Reason Comments Wellness Reason Comments Fall Fell on Friday and unsure how she landed, wrist pain, swelling and bruising since, LROM, increased pain in thumb area, x 4 days Reason Comments Patient Update Reason Comments Urinary Problem Frequency x 4 days Reason Onset Date Comments Results 02/15/2025 Care Teams (unrecognized sec tion and content) Saddle Mechanic Relationship Specialty Start Date End Date Sonam Hernandez MD [address] [place] [address] PCP - General Family Practice 11/05/21 Saddle Mechanic Relationship Specialty Start Date End Date Sonam Hernandez MD [address] [place], [place] [id number] PCP - General Family Practice 11/05/21 Saddle Mechanic Relationship Specialty Start Date End Date Sonam Hernandez MD [address] [place] [address] PCP - General Family Medicine 11/05/21 Saddle Mechanic Relationship Specialty Start Date End Date Sonam Hernandez MD [address] [place] [address] PCP - General Family Medicine 11/05/21 Saddle Mechanic Relationship Specialty Start Date End Date Sonam Hernandez MD [address] [place] [address] PCP - General Family Medicine 11/05/21 La Wilson APRN.RN CHEMICAL DEPENDENCY [address] [place] [address] Information Security Officer Family Medicine 06/27/24 Daniel Amaral, DIAMOND ASSORTER.RN CHEMICAL DEPENDENCY [address] [place] [address] Information Security Officer Family Medicine 07/06/24 Saddle Mechanic Relationship Specialty Start Date End Date Sonam Hernandez MD [address] [place] [address] PCP - General Family Medicine 11/05/21 La Wilson DIAMOND ASSORTER.RN CHEMICAL DEPENDENCY [address] [place] [address] Information Security Officer Family Medicine 06/27/24 Daniel Amaral APRN.RN CHEMICAL DEPENDENCY [address] [place] [address] Information Security Officer Family Medicine 07/06/24 Saddle Mechanic Relationship Specialty Start Date End Date Sonam Hernandez MD [address] [facility], [place] [address] [phone] PCP - General Family Medicine 11/05/21 Daniel Amaral APRN.RN CHEMICAL DEPENDENCY [address] [place], [place] [address] [phone] Information Security Officer [facility] 07/06/24 Saddle Mechanic Relationship Specialty Start Date End Date Sonam Hernandez MD [address] [place], [place] [address] [phone] PCP - General Family Medicine 11/05/21 Daniel Amaral APRN.RN CHEMICAL DEPENDENCY [address] [place], [place] [address] [phone] [facility] Team Status: Active Member Role Status Dates Dr. Sonam Hernandez MD Primary Care Provider Active Team Status: Inactive Member Role Status Dates Kenji Castro MD Emergency Provider Active Star t: January 04, 2025 End: January 04, 2025 Dr. Sonam Hernandez MD Primary Care Provider Active Start: January 04, 2025 End: January 04, 2025 Saddle Mechanic Relationship Specialty Start Date End Date Sonam Hernandez MD [address] [place], [place] [id number] [phone] PCP - General Family Medicine 11/05/21 Daniel Amaral APRN.RN CHEMICAL DEPENDENCY [address] [place], [place] [address] [phone] [facility] 07/06/24 Team Status: Active Member Role/Relationship Status Dates Dr. Sonam Hernandez MD Primary Care Provider Active Team Status: Inactive Member Role/Relationship Status Dates Kenji Castro MD Attending Provider Active Star t: January 04, 2025 End: January 04, 2025 Kenji Castro MD Emergency Provider Active Star t: January 04, 2025 End: January 04, 2025 Dr. Sonam Hernandez MD Primary Care Provider Active Start: January 04, 2025 End: January 04, 2025 Team Status: Inactive Member Role/Relationship Status Dates Dr. Sonam Hernandez MD Primary Care Provider Active Start: January 26, 2025 End: January 26, 2025 Dr. Sonam Hernandez MD Referring Provider Active Start: January 26, 2025 End: January 26, 2025 Dr. 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 Start Date End Date Sonam Hernandez MD [address] [place], [place] [address] PCP - General Family Medicine 11/05/21 Daniel Amaral APRN.RN CHEMICAL DEPENDENCY [address] [place], [place] [address] [facility] 07/06/24 Saddle Mechanic Relationship Specialty Start Date End Date Sonam Hernandez MD [address] [place], [place] [id number] PCP - General Family Medicine 11/05/21 Daniel Amaral APRN.RN CHEMICAL DEPENDENCY [address] [place] [address] [facility] 07/06/24 Goals (unrecognized section and content) Goals may be documented in a n alternate sectionGoals may be documented in an alternate section INFORMATION SOURCE (unrecogn ized section and content) DATE CREATED AUTHOR 01/29/2025 [facility] DATE CREATED AUTHOR AUTHOR'S GISELA DANG 02/17/2025 [facility] FOR RECORDS PERTAINING TO PATIENTS WHO ARE OR HAVE BEEN ENROLLED IN A CHEMICAL DEPENDENCY/SUBSTANCEABUSE PROGRAM, SOME INFORMATION MAY BE OMITTED. This clinical summary was aggregated from multiple sources. Caution should be exercised in using it in the provision of clinical care. This summary normalizes information from multiple sources, and as a consequence, information in this document may materially change the coding, format and clinical context of patient data. In addition, data may be omitted in some cases. CLINICAL DECISIONS SHOULD BE BASED ON THE PRIMARY CLINICAL RECORDS. [facility]. provides no warranty or guarantee of the accuracy or completeness of information in this document.
--- NOTE | 2025-02-18 17:47 | STRESSREP ---
Stress Test Report Pharmacologic myocardial perfusion stress test. 79-year-old lady with a history of paroxysmal atrial fibrillation Resting EKG demonstrates atrial fibrillation with a rate of 61 bpm. Resting blood pressure is 110/70 mmHg. 0.4 mg of regadenoson was infused per usual protocol followed by rapid intravenous saline flush injection. Continuous EKG monitoring was performed. The maximum heart rate was 87 bpm which was 62% of max impacted heart rate the maximum workload was 1 metabolic equivalent. At rest there were no ST or T wave changes noted to suggest ischemia and at peak infusion nonspecific ST changes were noted which did not meet the criteria for ischemia. No clinical angina is noted. The final blood pressure was 112/66 mmHg. Myocardial perfusion protocol. 11.9 mCi of technetium 99m sestamibi was injected at rest. 0.4 mg of regadenoson was infused per usual protocol. At peak infusion 34.2 mCi of technetium 99m sestamibi was injected stress images were obtained stress and rest images were reconstructed and compared in the short axis vertical long and horizontal long axis. Gated images were also obtained. Perfusion SPECT analysis: Review of the stress images demonstrate normal uptake of tracer noted in all areas of the myocardium. The resting images similar demonstrated normal uptake of tracer noted in all areas of the myocardium. No areas of reversibility are noted to suggest ischemia and no previous infarct is noted. Gated SPECT analysis: The gated ejection fraction is 76%. Conclusion: Normal pharmacologic myocardial perfusion stress test. Preserved ejection fraction.
== END | disposition home or self-care (01) ==
LOC: CVS 06:59
PROVIDERS: PCP Family Medicine; Referring Provider Internal Medicine Cardiovascular Disease; Visit Provider Internal Medicine Cardiovascular Disease
DX: I48.0 Paroxysmal atrial fibrillation (principal); I34.0 Nonrheumatic mitral (valve) insufficiency; I51.89 Other ill-defined heart diseases
CPT/HCPCS: 78452; 93017; 93306; A9500; A4216; J2785

== ENCOUNTER 2025-05-04 10:37 | Day surgery (SDC) | payer SELFPAY, OTHER ==
[2025-04-20 10:27] LABS: Anion Gap 10 (5-15); BUN 21 mg/dL (4-19); BUN/Creat Ratio 23.8 RATIO (10-20); Calcium,Total 10.1 mg/dL (7.6-11.0); Carbon Dioxide 24.2 mmol/L (21.0-32.0); Chloride 107 mmol/L (98-108); Glucose 231 mg/dL (70-99); Potassium 5.5 mmol/L (3.3-5.1)
--- NOTE | 2025-05-02 13:36 | HP.PCM_ITS ---
<Statement entered by Philip Dietz MD - 05/02/25 17:14> Agree with assessment and plan as outlined. Agree patient should strongly consider statin therapy. Plan for DCC 05/04/25 and if not successful would recommend load with amiodarone as outpt and reattempt DCC. Patient is resistant to take meds. History and Physical Date of Admission: 05/04/25 Dorys Gomes is an 79-year-old female who presents today for a cardioversion. She presented as a new patient to our office in January 2025 for management of atrial fibrillation. This was found for preprocedural workup for cataract surgery in December 2024. At that time, she was recommended to present to the emergency department. It was noted that her TSH was depressed at 0.096 and was not on any replacement therapy. She was treated with anticoagulation and metoprolol. She has a history of diabetes and hyperlipidemia. Upon presentation today, patient reports doing well. She reports generalized mild fatigue that she relates to age. She does not report any additional concerns. Further ROS below. 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 Is patient in pain?: No Allergies Penicillins Allergy (Verified 03/30/25 09:59) Swelling Medications: See EMR Ejection fraction %: 45 Have you fallen in the past year?: No PFSH Medical History Atrial fibrillation Hypothyroidism Vitamin D deficiency Hyperlipidemia Type 2 diabetes mellitus JESUS (generalized anxiety disorder) Depression Surgical History History of ankle surgery Family History Mother Cancer Father Diabetes Heart disease Social History Smoking Status: Never smoker alcohol intake: never substance use type: does not use caffeine: Yes ROS Const Const: Positive for fatigue; Negative for weakness, headache(s) or frequent falls Eyes Eyes: Negative for blurry vision ENT ENT: Negative for headache(s), dizziness or Nosebleed/epistaxis Cardio Chest Pain: No Palpitations: No Edema: None Muscle aches with walking: None Resp Respiratory: Negative for SOB with activity, SOB at rest or SOB orthopnea\SOB lying down GI GI: Negative nausea, vomiting, heartburn, bright, red blood in stools or black,tarry stools : Negative for hematuria Neuro Neuro: Negative for dizziness, lightheadedness, near syncope, syncope, frequent falls, headache(s), weakness or blurry vision Endo Endo: Positive for fatigue Cardiology Exam Const Appearance: cooperative, comfortable, no acute distress and well developed; Negative diaphoretic or ill appearing Nutritional Appearance: average body habitus Orientation: alert and oriented x3 Ambulating without assistive device Head Head: normal to inspection, normocephalic and atraumatic Ears: hearing grossly normal bilaterally Nose: external nose normal and Negative epistaxis Face and Sinus: face symmetric Eyes General: appearance normal, both eyes and all related structures Eyelids: eyelids normal Conjunctivae: conjunctivae normal; Negative scleral icterus EOM: EOM intact bilaterally Neck Neck: no JVD Carotids: normal carotid upstroke; Negative bruit Neck Mass: Negative Neck mass Chest Chest inspection: normal respiratory effort; Negative respiratory distress, audible wheezes or tachypneic Auscultation: Bilateral: Clear to Auscultation Cardio Rate: irregular rate Rhythm: irregularly irregular Heart sounds: S1 normal and S2 normal; Negative rub, gallop or murmur Neuro General: patient alert, patient awake, patient oriented x3 and moves all extremities Skin Skin: no rashes or lesions noted Extremities Pulses: Normal: Right Posterior Tibial Pulse, Left Posterior Tibial Pulse, Right Radial Pulse and Left Radial Pulse Lower Extremity Edema: None: Bilateral Psych Psychological: normal affect Supplemental Info Supplemental Information Echocardiogram from 02/18/2025: Interpretation Summary Normal LV size. The left ventricular ejection fraction is 45 %. There is mild global hypokinesis of the left ventricle. Mild (1+) tricuspid valve insufficiency. Stress Test from 02/18/2025: Conclusion: Normal pharmacologic myocardial perfusion stress test. Preserved ejection fraction. Assessment and Plan Assessment and Plan (1) Atrial fibrillation: Status: Acute Qualifiers: Atrial fibrillation type: paroxysmal Qualified Code(s): I48.0 - Paroxysmal atrial fibrillation Plan: Patient was recently diagnosed with atrial fibrillation observed on EKG while undergoing preprocedural workup for cataract surgery in December 2024. Her TSH was noted to be low at the time of initial diagnosis. Her TSH as of 02/23/2025 is within normal range. Stress test negative for ischemia 02/18/2025. Echocardiogram 02/18/2025 demonstrates a reduced ejection fraction at 45% with mild global hypokinesis of the left ventricle and normal left and right atrium size. Her EKG in office today demonstrates atrial fibrillation at a rate of 75 bpm. [id number] score of 4. Plan: It was previously discussed to initiate amiodarone and undergo DCCV; however, patient reports she is hopeful to remain on as minimal medications as possible. Given her normal atrium size, we will plan to attempt cardioversion without initiation of antiarrhythmic. Recommend patient continue current rate limiting medication, metoprolol tartrate 25 mg twice daily. (2) Hyperlipidemia: Status: Acute Qualifiers: Hyperlipidemia type: unspecified Qualified Code(s): E78.5 - Hyperlipidemia, unspecified Plan: Patient has a history of hyperlipidemia. Most recent lipid panel completed with PCP office 02/23/2025 demonstrates total cholesterol 329, LDL 257, triglyceride 130, HDL 48. We discussed recommendations today given these findings. Highly recommend initiation of lipid-lowering agent to reduce risk of cardiovascular event with agents such as statin, ezetimibe or Repatha/Praluent. At this time, patient does not wish to initiate medication and wishes to focus on diet and exercise. Further emphasized concerns of how elevated these levels are and the uncertainty if diet and exercise will achieve recommended values. Reviewed risk of cardiac event with uncontrolled cholesterol. Patient will notify our office if wishing to initiate agents. Plan 1. Patient will undergo DCCV 05/04/2025. Thank you for allowing me to participate in the care of your patient. Please don't hesitate to call if any issues arise. This note was generated using a voice recognition system and there may be incorrect words, spelling, or punctuation that were not noted when reviewing the office note prior to saving. Portions of this documentation were copied and pasted from previous office visit notes to provide a cohesive continuity of the history. The note has been reviewed, edited, and updated, as necessary.
[2025-05-03 11:33] VITALS: BMI 25.7
[2025-05-04 11:13] LABS: Anion Gap 9 (5-15); BUN 22 mg/dL (4-19); BUN/Creat Ratio 24.5 RATIO (10-20); Calcium,Total 9.9 mg/dL (7.6-11.0); Carbon Dioxide 25.5 mmol/L (21.0-32.0); Chloride 105 mmol/L (98-108); Estimated Creatinine Clearance 51.93 ml/min (50-250); Glucose 213 mg/dL (70-99); Potassium 5.1 mmol/L (3.3-5.1)
--- NOTE | 2025-05-04 12:26 | CARDIOVERS_ITS ---
Cardioversion Cardioversion: Patient is 79-year-old white female was brought to the [facility] recovery area in the fasting state. The patient has been documented be in atrial fibrillation since December 2024. This was found incidentally when she was being preop for cataract surgery. The patient has been on Eliquis since that point in time her rate has been well- controlled but she has continued to have fatigue and an echocardiogram showed normal left atrial sizes with no significant valve disease. He was therefore determined to try direct-current cardioversion to restore sinus rhythm. After informed consent anesthesia was administered by Dr. Melvin Jaeger. The patient received 40 mg of diprovan IV. After appropriate anesthesia effect a single synchronized 200 J shock was delivered. The patient was reverted into sinus rhythm with a heart rate of 40-45 bpm. After several minutes her heart rate stabilized that sinus bradycardia at 46 bpm. The patient's prior heart rate in atrial fibrillation was 75 bpm on metoprolol 25 mg twice daily. The patient awoke from anesthesia neurologically she was intact and there were no residual effects documented. We will discontinue the metoprolol due to the patient's sinus bradycardia. She is scheduled to have an ECG done in the [facility] office next week. Should the patient revert into atrial fibrillation would consider addition of flecainide to her medical regimen. Patient had a negative stress test for ischemia February 18, 2025 and has normal LV function with no significant valvular heart disease and normal atrial sizes. If flecainide is added to her medical regiment would start at 50 mg twice daily and add 25 mg metoprolol succinate in the morning as a single daily dose. Procedures Coronary Therapeutic CF Procedures [id number]: [id number] Cardioversion electric ext
--- NOTE | 2025-05-04 12:30 | PRO.PCM_ITS ---
Procedures Pulmonary Pulmonary Procedures /Diagnostic Testin Con Sedation Bedside Procedural Bedside Procedure Information Date of Procedure: 05/04/25 Description of procedure: CONSCIOUS SEDATION REPORT DATE OF SERVICE: May 04, 2025 BRIEF HISTORY OF PRESENT ILLNESS: The patient is an 79-year-old female who presented to [facility] to undergo an elective outpatient cardioversion due to underlying atrial fi brillation. The patient denied any prior anesthetic complications. She has never undergone a cardioversion in the past. She denies a history of tobacco dependency, COPD or asthma. She has never been diagnosed with obstructive sleep apnea. The patient is systemically anticoagulated on Eliquis. Her last surface echocardiogram demonstrated an ejection fraction of approximately 45%. PHYSICAL EXAMINATION: VITAL SIGNS: Reviewed and were acceptable. GENERAL: The patient is a female, in no apparent distress, speaking in full sentences. HEENT: Normocephalic, atraumatic. Mucous membranes are moist and pink. Good mouth opening noted. Trachea is midline. Good neck mobility. MPI CHEST: S1, S2 irregularly irregular. No murmurs, rubs or gallops were noted. LUNGS: Clear to auscultation bilaterally without appreciable wheezes, rales or rhonchi. ABDOMEN: Soft, nontender, nondistended. Positive bowel sounds. EXTREMITIES: There is no clubbing, cyanosis or edema. ASA Class: II DESCRIPTION OF PROCEDURE: After confirmation of informed consent, the patient's anesthesia plan was reviewed in detail. Propofol was chosen. Risks and benefits were reviewed and the patient agreed to proceed. At 1214, the patient was given 40 mg of propofol. The patient achieved an appropriate level of sedation and was given a 200 joule synchronized cardioversion by Dr. Dietz at the bedside. This was successful in achieving normal sinus rhythm. The patient was monitored until 1227, at which time she reached her baseline mental status and function. The patient tolerated the procedure well. COMPLICATIONS: None ESTIMATED BLOOD LOSS: None RECOMMENDATIONS: Okay to recover in usual fashion.
== END 2025-05-04 13:20 | disposition home or self-care (01) ==
PROVIDERS: Student in an Organized Health Care Education/Training Program; PCP Family Medicine; Referring Provider Internal Medicine Cardiovascular Disease; Visit Provider Internal Medicine Cardiovascular Disease
DX: I48.0 Paroxysmal atrial fibrillation (principal); E11.9 Type 2 diabetes mellitus without complications; Z79.01 Long term (current) use of anticoagulants; E78.5 Hyperlipidemia, unspecified; Z79.899 Other long term (current) drug therapy
CPT/HCPCS: 36415; 80048; 92960; 93005